=== PATIENT | male | born 1965 | race Caucasian/White ===

== ENCOUNTER → 2016-10-08 | Day surgery (SDC) | payer OTHER ==
[2016-10-06 14:18] VITALS: Ht 180.3 cm; Wt 106.8 kg
[~2016-10-08] VITALS: Ht 180.3 cm; Wt 106.8 kg
[~2016-10-08] MED LIST: ATOR10TA88 PO; CLON1TAB3 PO; DEXL60CA4 PO; FLUO20CA34 PO; LIDOCAINE HCL 2% 2 ML VIAL (20MG/ML) ONE; LISI-725 PO; PRLSR20 PO; PROPOFOL IV EMULSION 10 MG/ML 20 ML VIAL IV ONE; SODIUM CHLORIDE 0.9% 500ML 500 ML IV ONE
--- NOTE | 2016-10-08 14:23 | Endo History and Physical ---
History & Physical Date of Service: Oct 08, 2016. Chief Complaint: ACID RELUX, VOMITING, DYSPHAGIA Referring Physician: DR SANJAY FUNEZ History of Present Illness N/V, gastroparesis, gerd for EGD Past Surgical History Hx Cardiac Surgery: No Hx Internal Defibrillator: No Hx Pacemaker: No Hx Abdominal Surgery: Yes (COLON RESECTION, [facility]) Hx of Implantable Prosthesis: No Hx Post-Op Nausea and Vomiting: No Hx Cancer Surgery: No Hx Thoracic Surgery: No Hx Orthopedic: Yes (LT/RT WRIST SURGERY) Hx Urinary Tract Surgery: No Family History Colon CA Social History Smoking Status: Never Smoker Hx Substance Use: No Hx Alcohol Use: Yes (2 DRINKS/MONTH) Allergies Coded Allergies: Nitrous Oxide (Verified Allergy, Severe, RESPIRATORY PROBLEMS, 10/08/16) Carbamazepine (Verified Allergy, Unknown, RASH AND SORES ON HANDS, 10/08/16 ) Chocolate (Verified Allergy, Unknown, "ITCHING AND TONGUE FEELS FUNNY", ) ONLY IF EATEN WITH TOMATOES Citalopram (Verified Allergy, Unknown, HEART PALPITATIONS, 10/08/16) Promethazine (Verified Allergy, Unknown, BLE NUMBNESS AND SEIZURE-LIKE ACTIVITY, 10/08/16) Tomato (Verified Allergy, Unknown, "ITCHING AND TONGUE FEELS FUNNY", ) ONLY IF EATEN WITH CHOCOLATE Aspirin (Verified Adverse Reaction, Mild, BLEEDING FROM ?ORAFICE, 10/08/16) Current Medications Reported Home Medications Medications Dose Route/Sig Max Daily Dose Days Date Category Klonopin (Clonazepam) 1 Mg Tab 1 Mg PO DAILY PRN 10/06/16 Reported Dexilant (Dexlansoprazole) 60 Mg Cap 1 Cap PO QAM 10/06/16 Reported Prozac (Fluoxetine Hcl) 20 Mg Cap 20 Mg PO QPM 10/06/16 Reported Lipitor (Atorvastatin Calcium) 10 Mg Tab 10 Mg PO QPM 10/06/16 Reported Zestril (Lisinopril) 20 Mg Tab 20 Mg PO QPM 10/06/16 Reported Prilosec (Omeprazole) 20 Mg Capcr 20 Mg PO QPM 06/08/09 Reported Vital Signs Weight (Kilograms): 106.82 Height (Feet): 5 Height (Inches): 11 Date Time Temp Pulse Resp B/P (MAP) Pulse Ox O2 Delivery O2 Flow Rate FiO2 10/08/16 14:03 36.6 78 16 172/110 (130) 97 Room Air Review of Systems Respiratory: No shortness of breath Cardiovascular: No chest pain Physical Exam General Appearance: WD/WN, no apparent distress Respiratory/Chest: Respiratory effort: no dyspnea, good air movement Auscultation: breath sounds normal, no wheezing Cardiovascular: Apical Impulse: not displaced Heart Auscultation: RRR Abdomen: Bowel Sounds: normal Inspection & Palpation: soft, non-distended, no tenderness, guarding & rebound, no masses Liver: no hepatomegaly Assessment and Plan For EGD today
--- NOTE | 2016-10-08 14:41 | Discharge Instructions ---
Endoscopy Patient Instructions Date / Procedure(s) Performed Oct 08, 2016. EGD Allergy Information Coded Allergies: Nitrous Oxide (Verified Allergy, Severe, RESPIRATORY PROBLEMS, 10/08/16) Carbamazepine (Verified Allergy, Unknown, RASH AND SORES ON HANDS, 10/08/16 ) Chocolate (Verified Allergy, Unknown, "ITCHING AND TONGUE FEELS FUNNY", ) ONLY IF EATEN WITH TOMATOES Citalopram (Verified Allergy, Unknown, HEART PALPITATIONS, 10/08/16) Promethazine (Verified Allergy, Unknown, BLE NUMBNESS AND SEIZURE-LIKE ACTIVITY, 10/08/16) Tomato (Verified Allergy, Unknown, "ITCHING AND TONGUE FEELS FUNNY", ) ONLY IF EATEN WITH CHOCOLATE Aspirin (Verified Adverse Reaction, Mild, BLEEDING FROM ?ORAFICE, 10/08/16) Discharge Date / Findings Oct 08, 2016. Barretts esophagus, Hiatal hernia, mild antral gastritis Medication Instructions Continue Dexilant Provider Instructions Activity Restrictions - No exercising or heavy lifting for 24 hours. - Do not drink alcohol the day of the procedure. - Do not drive a car or operate machinery until the day after the procedure. - Do not make any important decisions or sign important papers in 24 hours after the procedure. Following Day: - Return to full activity which may include returning to work/school. Diet Start your diet with liquids and light foods (jello, soup, juice, toast). Then eat your usual diet if not nauseated. Treatment For Common After Affects For mild abdominal pain, bloating, or excessive gas: - Rest - Eat lightly - Lie on right side Follow-Up Information Follow-up with DR SANJAY FUNEZ as scheduled Contact DR Eulogio Haley for Gastroenterology followup. Anesthesia Information What You Should Know You have had a procedure that required some medicine to reduce anxiety and discomfort. This treatment is called moderate sedation. After receiving the treatment, you may be sleepy, but you will be able to breathe on your own. The effects of the treatment may last for several hours. Follow these instructions along with Activity/Diet recommendations noted above: * Do NOT do anything where dizziness or clumsiness would be dangerous. * Rest quietly at home today, then you can be up and about tomorrow. * Have a responsible person stay with you the rest of today. * You may have had an I.V. today. If so, you may take the dressing off later today. Recommendations Call your doctor if: * Trouble breathing * Continuous vomiting for more than 24 hours * Temperature above 101 degrees * Severe abdominal pain or bloating * Pain not relieved by pain medicine ordered * There is increased drainage or redness from any incision * A large amount of rectal bleeding greater than 2-3 tablespoons. (If you had a polyp/s removed or have hemorrhoids, a small amount of blood - from the rectum is to be expected.) * You have any unanswered questions or concerns. IN THE EVENT OF A SERIOUS EMERGENCY, GO TO THE NEAREST EMERGENCY ROOM Your discharge instructions were prepared by provider Tc Mercedes. Patient Instructions Signature Page Brian Villagomez Patient (or Guardian) Signature/Date: I have read and understand the instructions given to me by my caregivers. Caregiver/RN/Doctor Signature/Date: The above-named patient and/or guardian has received patient instructions on this date. + Original Patient Signature Page (only) stays with chart. Please make copy for patient.
--- NOTE | 2016-10-08 15:39 | Progress Note ---
Progress Note Date of Service Oct 08, 2016. Progress Note Pt with increased epigastric and chest burning right after procedure. Interim exam benign. At present feels at baseline with minimal epigastric and chest burning. Discussed procedure with patient and girlfriend , continue dexilant and omeprazole and f/u OV. Abdomen pos bs, soft, no guarding nor rebound, chest wall no crepitus.
[2016-10-08 15:44] VITALS: BP 143/92; PULSE 77; TEMP 36.2; O2SAT 98
--- NOTE | 2016-10-08 15:44 | Anesthesiology Progress Note ---
Anesthesia Post Op Note Date & Time Oct 08, 2016 at 15:44 Vital Signs Pain Intensity: 0 Vital Signs Past 12 Hours Date Time Temp Pulse Resp B/P (MAP) Pulse Ox O2 Delivery O2 Flow Rate FiO2 10/08/16 15:17 77 20 142/91 (108) 98 Room Air 10/08/16 15:02 80 20 134/91 (105) 97 Room Air 10/08/16 14:47 78 16 140/82 (101) 97 Room Air 10/08/16 14:03 36.6 78 16 172/110 (130) 97 Room Air Notes Mental Status: alert / awake / arousable, participated in evaluation Pt Amnestic to Procedure: Yes Nausea / Vomiting: adequately controlled Pain: adequately controlled Airway Patency, RR, SpO2: stable & adequate BP & HR: stable & adequate Hydration State: stable & adequate Anesthetic Complications: no major complications apparent
--- NOTE | 2016-10-09 00:15 | GI REPORT ---
Procedure Date: 10/08/2016 2:30 PM Procedure: Upper GI endoscopy Indications: Esophageal reflux, Gastroparesis, Vomiting Medicines: Monitored Anesthesia Care Complications: No immediate complications. Estimated Blood Loss: Estimated blood loss: none. Estimated blood loss was minimal. Procedure: Pre-Anesthesia Assessment: - The risks and benefits of the procedure and the sedation options and risks were discussed with the patient. All questions were answered and informed consent was obtained. - Patient identification and proposed procedure were verified prior to the procedure by the physician, the nurse, the senior animal trainer and the air technician. The procedure was verified in the procedure room. - Procedure and risks explained to patient which include but not limited to medication reaction, bleeding, perforation, aspiration , and missed lesions. Judicious gas insufflation was used and gas removal done on the way out. The lumen was always visualized when advancing the scope. Prep was good. Washes and suctioning used as needed to get good visualization of the mucosa. Retroflexion to look at the fundus and cardia of the stomach and GE junction was done. After obtaining informed consent, the endoscope was passed under direct vision. Throughout the procedure, the patient's blood pressure, pulse, and oxygen saturations were monitored continuously. The scope was introduced through the mouth, and advanced to the second part of duodenum. The upper GI endoscopy was accomplished without difficulty. The patient tolerated the procedure well. Findings: There were esophageal mucosal changes suspicious for short-segment Mccoy's esophagus (tongue of columnar mucosa) present in the lower third of the esophagus. The maximum longitudinal extent of these mucosal changes was 2 cm in length. Mucosa was biopsied with a cold forceps for histology. Estimated blood loss was minimal. Esophagogastric landmarks were identified: the Z-line was found at 38 cm from the incisors. A 6 cm hiatus hernia was present. Localized mildly erythematous mucosa was found in the gastric antrum. Biopsies were taken with a cold forceps for Helicobacter pylori testing. Estimated blood loss was minimal. The examined duodenum was normal. Impression: - Esophageal mucosal changes suspicious for short-segment Mccoy's esophagus. Biopsied. - Esophagogastric landmarks identified. - 6 cm hiatus hernia. - Erythematous mucosa in the antrum. Biopsied. - Normal examined duodenum. Recommendation: - Discharge patient to home (ambulatory). - Continue Dexilant. F/u with DR Eulogio Haley in the office. Tc Mercedes M.D. Tc Mercedes MD 10/08/2016 2:47:51 PM This report has been signed electronically. Note Initiated On: 10/08/2016 2:30 PM I attest to the content of the Intraoperative Record and orders documented therein, exceptions below
== END | disposition home or self-care (01) ==
LOC: C.GI 12:57
PROVIDERS: ATTEND Internal Medicine Gastroenterology
DX: K20.9 Esophagitis, unspecified (principal); K44.9 Diaphragmatic hernia without obstruction or gangrene; K21.9 Gastro-esophageal reflux disease without esophagitis; K31.84 Gastroparesis; Z80.0 Family history of malignant neoplasm of digestive organs; Z79.899 Other long term (current) drug therapy

== ENCOUNTER 2025-01-14 14:13 | Inpatient (IN) ==
[2025-01-14 15:22] LABS: Hematocrit (blood only) 41.1 % (42.0-52.0); Hemoglobin 13.8 g/dL (14.0-18.0); Immature Granulocytes # (auto) 0.02 K/uL (0.01-0.20); Immature Granulocytes % (auto) 0.3 %; Mean Corpuscular Hemoglobin 27.9 pg (25.0-34.0); Mean Corpuscular Volume 83.0 fL (80.0-100.0); Platelet Count 244 K/uL (130-400); RDW Standard Deviation 42.4 fL (36.4-46.3); Red Blood Count 4.95 M/uL (4.70-6.10); White Blood Count 7.22 K/ul (4.8-10.8)
[2025-01-14 15:42] LABS: Alanine Aminotransferase 38.0 U/L (7-52); Albumin Globulin Ratio 1.2 (0.9-2); Albumin Level 4.4 gm/dl (3.4-5.0); Alkaline Phosphatase 83.0 U/L (34-104); Anion Gap 11.0 (3-11); Bilirubin,Total 0.5 mg/dl (0.2-1.0); Blood Urea Nitrogen 19.0 mg/dl (6-23); Calcium 9.1 mg/dl (8.6-10.3); Carbon Dioxide 24.0 mmol/L (21-32); Chloride 100.0 mmol/L (98-107); Creatinine Clr Calc Pharmacy 126.0 ml/min; Globulin 3.6 gm/dl (2.5-4.0); Glucose 215.0 mg/dl (70-99(Fasting)); Lipase 15.0 U/L (11-82); Potassium 4.1 mmol/L (3.5-5.1); Sodium 135.0 mmol/L (136-145); Total Protein 8.0 gm/dl (6.0-8.3)
[2025-01-14] MEDS: OPTIRAY 320 100ml IV ONE (16:00)
[2025-01-14] MEDS: HYDROmorphone INJ 1 MG/ML SYRINGE IV STA ×2 (16:14→18:03)
[2025-01-14] MEDS: SODIUM CHLORIDE 0.9% 1,000 ML IV ONE (16:14)
[2025-01-14] MEDS: ONDANSETRON INJ 2 MG/ML 2 ML VIAL IV STA (16:14)
--- NOTE | 2025-01-14 16:27 | Emergency Department Note ---
History of Present Illness General Chief complaint: Abdominal Pain Stated complaint: ABDOMINAL PAIN S/P SURGERY Time Seen by Provider: 01/14/25 14:59 History of Present Illness Maximum Pain Intensity: 8 Patient is a 59-year-old male with history of recent right-sided hemicolectomy and ileostomy creation on 11/16/2024 at [facility] presenting with abdominal pain. He has chronic abdominal pain however last night pain became more severe. Also reports "dry heaves" and nausea. Abdominal pain is diffuse. Waxes and wanes severity. He does report his output from his ostomy is more "liquid". Denies any fevers, chills, chest pain, shortness of breath, lightheadedness, dizziness, any change in urination. Home Medications Medication Instructions Recorded Confirmed Type OMEPRAZOLE (PRILOSEC) 20 mg PO QPM ##0 06/08/09 History ATORVASTATIN (LIPITOR) 10 mg PO QPM ##0 10/06/16 History Clonazepam (Klonopin) 1 mg PO DAILY PRN Anxiety ##0 10/06/16 History DEXLANSOPRAZOLE (DEXILANT) 1 cap PO QAM ##0 10/06/16 History FLUOXETINE HCL (PROZAC) 20 mg PO QPM ##0 10/06/16 History Lisinopril (Zestril) 20 mg PO QPM ##0 10/06/16 History Allergies Allergy/AdvReac Type Severity Reaction Status Date / Time nitrous oxide Allergy Severe RESPIRATORY Verified 10/08/16 13:36 PROBLEMS carbamazepine Allergy Unknown RASH AND Verified 10/08/16 13:36 SORES ON HANDS chocolate flavor Allergy Unknown "ITCHING Verified 10/08/16 13:36 AND TONGUE FEELS FUNNY" citalopram Allergy Unknown HEART Verified 10/08/16 13:36 PALPITATIONS promethazine Allergy Unknown BLE Verified 10/08/16 13:36 NUMBNESS AND SEIZURE-LIKE ACTIVITY tomato Allergy Unknown "ITCHING Verified 10/08/16 13:36 AND TONGUE FEELS FUNNY" aspirin AdvReac Mild BLEEDING Verified 10/08/16 13:36 FROM ?ORAFICE Past Med/Surg History Problem List (Updated 01/14/25 @ 17:47 by Tc Baltazar MD) Partial small bowel obstruction (Acute) Social History Smoking Status: Never smoker Feels Safe at Home: Yes Review of Systems Review of systems negative outside of positive findings mentioned in HPI. Physical Exam Vital Signs Vital Signs - 24 hr 01/14/25 14:24 01/14/25 14:45 01/14/25 14:45 Temperature 36.8 C Temperature Source Oral Pulse Rate 99 H 92 H 94 H Pulse Rate [Apical] Pulse Rate from SpO2 Sensor Respiratory Rate 20 17 Respiratory Effort / Characteristics Non-Labored Respiratory Depth Respiratory Pattern Regular Blood Pressure 148/95 H Blood Pressure [Right Arm] Blood Pressure Mean 112 Blood Pressure Mean [Right Arm] Blood Pressure Position Sitting Blood Pressure Position [Right Arm] Pulse Oximetry 96 Oxygen Delivery Method Room Air Sepsis Recent Fever Within 48 Hours No Sepsis New/Unexplained Change in Mental Status No Sepsis Action Taken by Nursing No Action Required 01/14/25 15:00 01/14/25 15:12 01/14/25 15:13 Temperature Temperature Source Pulse Rate 89 85 Pulse Rate [Apical] Pulse Rate from SpO2 Sensor Respiratory Rate 15 15 Respiratory Effort / Characteristics Respiratory Depth Respiratory Pattern Blood Pressure 132/87 Blood Pressure [Right Arm] Blood Pressure Mean 103 Blood Pressure Mean [Right Arm] Blood Pressure Position Blood Pressure Position [Right Arm] Pulse Oximetry Oxygen Delivery Method Sepsis Recent Fever Within 48 Hours Sepsis New/Unexplained Change in Mental Status Sepsis Action Taken by Nursing 01/14/25 15:14 01/14/25 15:14 01/14/25 15:15 Temperature Temperature Source Pulse Rate Pulse Rate [Apical] 90 Pulse Rate from SpO2 Sensor Respiratory Rate 20 Respiratory Effort / Characteristics Non-Labored Spontaneous Respiratory Depth Normal Respiratory Pattern Regular Blood Pressure 134/91 Blood Pressure [Right Arm] 134/91 Blood Pressure Mean 102 Blood Pressure Mean [Right Arm] 105 Blood Pressure Position Blood Pressure Position [Right Arm] Semi-fowlers Pulse Oximetry 96 95 Oxygen Delivery Method Room Air Room Air Sepsis Recent Fever Within 48 Hours Sepsis New/Unexplained Change in Mental Status Sepsis Action Taken by Nursing 01/14/25 15:15 01/14/25 15:30 01/14/25 15:42 Temperature Temperature Source Pulse Rate 89 92 H 92 H Pulse Rate [Apical] Pulse Rate from SpO2 Sensor 89 92 H 92 H Respiratory Rate 19 14 22 Respiratory Effort / Characteristics Respiratory Depth Respiratory Pattern Blood Pressure Blood Pressure [Right Arm] Blood Pressure Mean Blood Pressure Mean [Right Arm] Blood Pressure Position Blood Pressure Position [Right Arm] Pulse Oximetry 94 95 95 Oxygen Delivery Method Sepsis Recent Fever Within 48 Hours Sepsis New/Unexplained Change in Mental Status Sepsis Action Taken by Nursing 01/14/25 16:14 01/14/25 16:15 01/14/25 16:30 Temperature Temperature Source Pulse Rate 91 H 83 Pulse Rate [Apical] Pulse Rate from SpO2 Sensor 95 H 82 Respiratory Rate 19 15 Respiratory Effort / Characteristics Respiratory Depth Respiratory Pattern Blood Pressure 148/98 H Blood Pressure [Right Arm] Blood Pressure Mean 129 Blood Pressure Mean [Right Arm] Blood Pressure Position Blood Pressure Position [Right Arm] Pulse Oximetry 96 93 Oxygen Delivery Method Sepsis Recent Fever Within 48 Hours Sepsis New/Unexplained Change in Mental Status Sepsis Action Taken by Nursing 01/14/25 16:30 01/14/25 16:30 01/14/25 16:45 Temperature Temperature Source Pulse Rate 83 Pulse Rate [Apical] Pulse Rate from SpO2 Sensor 84 Respiratory Rate 14 Respiratory Effort / Characteristics Respiratory Depth Respiratory Pattern Blood Pressure 127/88 127/88 Blood Pressure [Right Arm] Blood Pressure Mean 106 106 Blood Pressure Mean [Right Arm] Blood Pressure Position Blood Pressure Position [Right Arm] Pulse Oximetry 93 Oxygen Delivery Method Sepsis Recent Fever Within 48 Hours Sepsis New/Unexplained Change in Mental Status Sepsis Action Taken by Nursing 01/14/25 16:45 01/14/25 16:45 01/14/25 17:00 Temperature Temperature Source Pulse Rate 75 Pulse Rate [Apical] Pulse Rate from SpO2 Sensor 74 Respiratory Rate 16 Respiratory Effort / Characteristics Respiratory Depth Respiratory Pattern Blood Pressure 127/89 127/89 Blood Pressure [Right Arm] Blood Pressure Mean 100 100 Blood Pressure Mean [Right Arm] Blood Pressure Position Blood Pressure Position [Right Arm] Pulse Oximetry 94 Oxygen Delivery Method Sepsis Recent Fever Within 48 Hours Sepsis New/Unexplained Change in Mental Status Sepsis Action Taken by Nursing 01/14/25 17:00 01/14/25 17:15 01/14/25 17:15 Temperature Temperature Source Pulse Rate Pulse Rate [Apical] Pulse Rate from SpO2 Sensor Respiratory Rate Respiratory Effort / Characteristics Respiratory Depth Respiratory Pattern Blood Pressure 122/81 139/91 139/91 Blood Pressure [Right Arm] Blood Pressure Mean 97 100 100 Blood Pressure Mean [Right Arm] Blood Pressure Position Blood Pressure Position [Right Arm] Pulse Oximetry Oxygen Delivery Method Sepsis Recent Fever Within 48 Hours Sepsis New/Unexplained Change in Mental Status Sepsis Action Taken by Nursing 01/14/25 17:15 01/14/25 17:30 01/14/25 17:30 Temperature Temperature Source Pulse Rate 77 75 Pulse Rate [Apical] Pulse Rate from SpO2 Sensor 71 76 Respiratory Rate 16 17 Respiratory Effort / Characteristics Respiratory Depth Respiratory Pattern Blood Pressure 134/87 Blood Pressure [Right Arm] Blood Pressure Mean 111 Blood Pressure Mean [Right Arm] Blood Pressure Position Blood Pressure Position [Right Arm] Pulse Oximetry 96 97 Oxygen Delivery Method Sepsis Recent Fever Within 48 Hours Sepsis New/Unexplained Change in Mental Status Sepsis Action Taken by Nursing 01/14/25 17:30 01/14/25 17:30 Temperature Temperature Source Pulse Rate Pulse Rate [Apical] Pulse Rate from SpO2 Sensor Respiratory Rate Respiratory Effort / Characteristics Respiratory Depth Respiratory Pattern Blood Pressure 134/87 134/87 Blood Pressure [Right Arm] Blood Pressure Mean 111 111 Blood Pressure Mean [Right Arm] Blood Pressure Position Blood Pressure Position [Right Arm] Pulse Oximetry Oxygen Delivery Method Sepsis Recent Fever Within 48 Hours Sepsis New/Unexplained Change in Mental Status Sepsis Action Taken by Nursing See below Constitutional WD/WN, vitals as above Respiratory normal respiratory effort, lungs clear to auscultation Cardiovascular RRR, no murmur, no edema Gastrointestinal (Abdomen) Inspection/Auscultation: + abdomen distended, normal bowel sounds and + surgical scar Percussion/Palpation: + abdomen tender (diffuse to light palpation ), + guarding and abdomen soft Ostomy with normal color and patency Course Administered Medications Discontinued Medications Hydromorphone HCl (Hydromorphone Inj 1 Mg/Ml Syringe) 1 mg IV NOW STA Stop: 01/14/25 15:53 Last Admin: 01/14/25 16:14 Dose: 1 mg Documented By: ETHAN Sodium Chloride (Nss) 1,000 mls @ 999 mls/hr IV .Q1H1M ONE Stop: 01/14/25 16:52 Last Infusion: 01/14/25 17:33 Dose: Infused Documented By: Admin: 01/14/25 16:14 Dose: 999 mls/hr Documented By: ETHAN Ioversol (Optiray 320 100ml) 90 ml IV ONCE ONE Stop: 01/14/25 16:01 Last Admin: 01/14/25 16:00 Dose: 90 ml Documented By: OLGA Ondansetron HCl (Ondansetron Inj 2 Mg/Ml 2 Ml Vial) 4 mg IV NOW STA Stop: 01/14/25 15:53 Last Admin: 01/14/25 16:14 Dose: 4 mg Documented By: ETHAN Medical Decision Making Differential Diagnosis DDx includes but not limited to: SBO, partial SBO, ischemic bowel, volvulus, gastroenteritis, pancreatitis Medical Records Attestation: I reviewed the patient's medical records. Home Medications Current Medication List: was personally reviewed by me Laboratory Data Attestation: I reviewed the patient's lab results. 01/14/25 15:10 01/14/25 15:10 Lab Results 01/14/25 01/14/25 01/14/25 Range/Units 15:10 15:41 15:48 WBC 7.22 (4.8-10.8) K/ul RBC 4.95 (4.70-6.10) M/uL Hgb 13.8 L (14.0-18.0) g/dL Hct 41.1 L (42.0-52.0) % MCV 83.0 (80.0-100.0) fL MCH 27.9 (25.0-34.0) pg MCHC 33.6 (32.0-36.0) g/dL RDW Std Deviation 42.4 (36.4-46.3) fL RDW Coeff of Re 14.0 (11.5-14.5) % Plt Count 244 (130-400) K/uL MPV 10.1 (9.4-12.4) fL Immature Gran % (Auto) 0.3 % Neut % (Auto) 79.0 % Lymph % (Auto) 12.2 % Boyle % (Auto) 7.5 % Eos % (Auto) 0.4 % Baso % (Auto) 0.6 % Neut # (Auto) 5.71 (1.40-6.50) K/uL Lymph # (Auto) 0.88 L (1.20-3.40) K/uL Boyle # (Auto) 0.54 (0.11-0.59) K/uL Eos # (Auto) 0.03 (0.00-0.50) K/uL Baso # (Auto) 0.04 (0.00-0.20) K/uL Immature Gran # (Auto) 0.02 (0.01-0.20) K/uL PT Cancelled INR Cancelled Sodium 135 L (136-145) mmol/L Potassium 4.1 (3.5-5.1) mmol/L Chloride 100 (98-107) mmol/L Carbon Dioxide 24 (21-32) mmol/L Anion Gap 11 (3-11) BUN 19 (6-23) mg/dl Creatinine 0.82 (0.6-1.4) mg/dl Est Cr Clr Drug Dosing 126.0 ml/min eGFR 101.82 BUN/Creatinine Ratio 23.2 H (10-20) Glucose 215 H (70-99(Fasting)) mg/dl Lactate 2.5 H* (0.4-2.0) mmol/L Calcium 9.1 (8.6-10.3) mg/dl Total Bilirubin 0.5 (0.2-1.0) mg/dl AST 35 (13-39) U/L ALT 38 (7-52) U/L Alkaline Phosphatase 83 (34-104) U/L Troponin I High Sens 3.2 (0-20) pg/ml Total Protein 8.0 (6.0-8.3) gm/dl Albumin 4.4 (3.4-5.0) gm/dl Globulin 3.6 (2.5-4.0) gm/dl Albumin/Globulin Ratio 1.2 (0.9-2) Lipase 15 (11-82) U/L Procalcitonin < 0.02 (0-0.5) ng/ml SARS-CoV-2, RNA, NAAT NEGATIVE (NEGATIVE) 01/14/25 Range/Units 16:43 WBC (4.8-10.8) K/ul RBC (4.70-6.10) M/uL Hgb (14.0-18.0) g/dL Hct (42.0-52.0) % MCV (80.0-100.0) fL MCH (25.0-34.0) pg MCHC (32.0-36.0) g/dL RDW Std Deviation (36.4-46.3) fL RDW Coeff of Re (11.5-14.5) % Plt Count (130-400) K/uL MPV (9.4-12.4) fL Immature Gran % (Auto) % Neut % (Auto) % Lymph % (Auto) % Boyle % (Auto) % Eos % (Auto) % Baso % (Auto) % Neut # (Auto) (1.40-6.50) K/uL Lymph # (Auto) (1.20-3.40) K/uL Boyle # (Auto) (0.11-0.59) K/uL Eos # (Auto) (0.00-0.50) K/uL Baso # (Auto) (0.00-0.20) K/uL Immature Gran # (Auto) (0.01-0.20) K/uL PT 10.9 INR 1.0 Sodium (136-145) mmol/L Potassium (3.5-5.1) mmol/L Chloride (98-107) mmol/L Carbon Dioxide (21-32) mmol/L Anion Gap (3-11) BUN (6-23) mg/dl Creatinine (0.6-1.4) mg/dl Est Cr Clr Drug Dosing ml/min eGFR BUN/Creatinine Ratio (10-20) Glucose (70-99(Fasting)) mg/dl Lactate (0.4-2.0) mmol/L Calcium (8.6-10.3) mg/dl Total Bilirubin (0.2-1.0) mg/dl AST (13-39) U/L ALT (7-52) U/L Alkaline Phosphatase (34-104) U/L Troponin I High Sens (0-20) pg/ml Total Protein (6.0-8.3) gm/dl Albumin (3.4-5.0) gm/dl Globulin (2.5-4.0) gm/dl Albumin/Globulin Ratio (0.9-2) Lipase (11-82) U/L Procalcitonin (0-0.5) ng/ml SARS-CoV-2, RNA, NAAT (NEGATIVE) Imaging Data Radiologist's Impression: Abdomen/Pelvis CT 01/14/25 15:23 INDICATION: Abdominal pain COMPARISON: 05/03/2015 TECHNIQUE: Contiguous axial CT images were obtained through the abdomen and pelvis. Dose reduction according to patient size and/or automated exposure control techniques have been utilized for this exam. FINDINGS: CT ABDOMEN: LUNG BASES:Small hiatal hernia. Lung bases are clear. LIVER: No worrisome hepatic lesions. Hepatic steatosis. Mild intrahepatic biliary ductal dilatation SPLEEN: Unremarkable. GALLBLADDER: Cholecystectomy. KIDNEYS: No hydronephrosis or nephrolithiasis. No solid renal lesions. PANCREAS: The body and tail of the pancreas are not visualized, possibly surgically absent. ADRENAL GLANDS: Unremarkable. PROXIMAL BOWEL: Mildly dilated loops of small bowel in the left upper quadrant suggestive of partial obstruction or ileus. RETROPERITONEUM: No AAA. No significant lymphadenopathy. OTHER: Right lower quadrant ostomy. CT PELVIS: URINARY BLADDER: Unremarkable. PELVIC ORGANS: Unremarkable. DISTAL BOWEL: There is some mild retained stool in the colon. There is some oral contrast in the visualized portions of the colon. OTHER: No significant lymphadenopathy. There is no free pelvic fluid. IMPRESSION: There are some mildly dilated fluid-filled loops of proximal small bowel in the left upper quadrant, suggestive of partial small bowel obstruction or ileus. Electronically signed by Kaelyn Mcbride 01-14-2025 5:12 PM [facility] Narrative Patient is a 59-year-old male with history as seen above who presents for worsening acute on chronic abdominal pain as well as nausea and vomiting. Hemodynamically stable. Nonperitoneal abdominal exam. He is having some output from his ostomy without signs of ischemia of the ostomy site itself. Lab work was obtained. No leukocytosis noted. Mild lactate elevation at 2.5. IV fluids and antiemetics as well as IV pain medication was ordered. Mildly dilated fluid-filled small bowel noted on CT. This is suggestive of partial small bowel obstruction. I spoke with Dr. Alexx Chandra with general surgery. She recommends hospital admission and NG tube placement for medical management of partial small bowel. Patient is stable for admission to medical service. Impression & Plan Partial small bowel obstruction Discharge Plan Visit Data Chief Complaint: Abdominal Pain Stated Complaint: ABDOMINAL PAIN S/P SURGERY ED Provider: Tc Baltazar Discharge Problem: Partial small bowel obstruction Patient Disposition: Admitted As Inpatient Condition: Good Forms Stand Alone Forms: My [facility] [employer] Prescriptions Prescriptions: No Action OMEPRAZOLE (PRILOSEC) 20 MG CONTR REL CAP 20 mg PO QPM Qty: 0 ATORVASTATIN (LIPITOR) 10 MG tablet 10 mg PO QPM Qty: 0 Clonazepam (Klonopin) 1 MG tablet 1 mg PO DAILY PRN (Reason: Anxiety) Qty: 0 DEXLANSOPRAZOLE (DEXILANT) 60 MG capsule 1 cap PO QAM Qty: 0 FLUOXETINE HCL (PROZAC) 20 MG capsule 20 mg PO QPM Qty: 0 Lisinopril (Zestril) 20 MG tablet 20 mg PO QPM Qty: 0 Referrals Referrals: Ike Hare PA-C [Primary Care Provider] -
--- NOTE | 2025-01-14 17:12 | CT Scan Report ---
INDICATION: Abdominal pain COMPARISON: 05/03/2015 TECHNIQUE: Contiguous axial CT images were obtained through the abdomen and pelvis. Dose reduction according to patient size and/or automated exposure control techniques have been utilized for this exam. FINDINGS: CT ABDOMEN: LUNG BASES:Small hiatal hernia. Lung bases are clear. LIVER: No worrisome hepatic lesions. Hepatic steatosis. Mild intrahepatic biliary ductal dilatation SPLEEN: Unremarkable. GALLBLADDER: Cholecystectomy. KIDNEYS: No hydronephrosis or nephrolithiasis. No solid renal lesions. PANCREAS: The body and tail of the pancreas are not visualized, possibly surgically absent. ADRENAL GLANDS: Unremarkable. PROXIMAL BOWEL: Mildly dilated loops of small bowel in the left upper quadrant suggestive of partial obstruction or ileus. RETROPERITONEUM: No AAA. No significant lymphadenopathy. OTHER: Right lower quadrant ostomy. CT PELVIS: URINARY BLADDER: Unremarkable. PELVIC ORGANS: Unremarkable. DISTAL BOWEL: There is some mild retained stool in the colon. There is some oral contrast in the visualized portions of the colon. OTHER: No significant lymphadenopathy. There is no free pelvic fluid. IMPRESSION: There are some mildly dilated fluid-filled loops of proximal small bowel in the left upper quadrant, suggestive of partial small bowel obstruction or ileus. Electronically signed by Kaelyn Mcbride 01-14-2025 5:12 PM
[2025-01-14 17:29] LABS: INR 1.0 (0.9-1.1); Prothrombin Time 10.9 Seconds (9.0-12.0)
--- NOTE | 2025-01-14 18:27 | History & Physical Report ---
Date of Service January 14, 2025 Assessment & Plan (1) Partial small bowel obstruction: (2) C. difficile colitis: (3) Diabetes type 1: (4) Colostomy in place: (5) HTN (hypertension): (6) Opioid dependence: Plan 59 y/o who had R hemicolectomy and colostomy on 11/16 who presents with acute abdominal pain. Found to have partial SBO on CT abdomen/pelvis # Partial SBO vs ileus. Might have pSBO on basis of adhesions from recent colectomy. He recently finished oral vancomycin for C. diff and seems to be having diarrhea - ileus related to C. diff is another possibility -ng tube, IV fluids, IV hydromorphone and IV APAP PRN pain, IV ondansetron or benadryl PRN N/V. Had reaction to promethazine in past (leg numbness and seizure-like) could have been akathesia so trying to avoid compazine, reglan -recheck 2h lactate for mild elevation -metronidazole 500 mg IV q8h and check C. diff toxin. If recurrence, start fidaxomycin once able to tolerate po -AM CMP mag, CBC -ED consulted general surgery and spoke with Dr. Coffey-Prateek - rec'd conservative care and unlikely to require transfer right now # HTN, HLD -hold antihypertensives and statin until taking po # GERD - IV pepcid to replace dexlansoprazole. Try to transition to pepcid instead of PPI for GERD because of risk of recurrent C. diff # Anxiety, mood disorder -usually takes clonazepam prn - replace with low dose IV lorazepam PRN -fluoxetine held until taking po # DM type 1 - - will try continuing novolin pump and CGM - currently ordered D5 in IVF which may need adjustment - AM A1c # Recent bacteremia - completed a month of home IV antibiotics recently - get [facility] records # postprocedural hypothyroidism - Hx thyroidectomy - recently led to not digesting pills, possibly to his colon problem - get [facility] records - per pharm database usual dose is 250 mcg daily - start IV if prolonged NPO # chronic pain, opioid dependence - per PDMP uses fentanyl patch 75 mcg - continue - also oxycodone 20 mg qid prn - current diarrhea could be component of opioid withdrawal - will need opioid tolerant dosing # DVT ppx - enoxaparin History of Present Illness Chief Complaint: Abdominal pain Primary Care Provider: Ike Hare PA-C 59 y/o with DM type 1 and right hemicolectomy with colostomy 11/16 at [facility] came in with nausea/vomiting, abdominal pain and distention. He says the hemicolectomy was done for a dilated and abscessed right colon. He had a bacteremia and completed IV antibiotics at home recently. He also was treated for C. diff and completed oral vancomycin recently. He was in his usual state of health until yesterday, developed some chills/sweats, recurrent nausea/vomiting, severe abdominal pain. Yesterday he had a good amount of oatmeal consistency stool from his ostomy. Today he has had a lot of liquid stool and gas. He would put it in the category of diarrhea. No blood in stool. Pain improved to moderate after IV hydromorphone but it did wear off in about 2h. Med list not up to date yet, I reviewed in pharm database and PDMP Remarkable for amlodipine, coreg, lisinopril, statin, levothyroxine, PPI, clonazepam, fentanyl patch 75 mcg, oxycodone 20 mg po qid prn, insulin pump PMH: DM type 1 Hypothyroidism HTN HLD PSH: R hemicolectomy, R colostomy 11/16 Thyroid resection Allergies Allergy/AdvReac Type Severity Reaction Status Date / Time nitrous oxide Allergy Severe RESPIRATORY Verified 10/08/16 13:36 PROBLEMS carbamazepine Allergy Unknown RASH AND Verified 10/08/16 13:36 SORES ON HANDS chocolate flavor Allergy Unknown "ITCHING Verified 10/08/16 13:36 AND TONGUE FEELS FUNNY" citalopram Allergy Unknown HEART Verified 10/08/16 13:36 PALPITATIONS promethazine Allergy Unknown BLE Verified 10/08/16 13:36 NUMBNESS AND SEIZURE-LIKE ACTIVITY tomato Allergy Unknown "ITCHING Verified 10/08/16 13:36 AND TONGUE FEELS FUNNY" aspirin AdvReac Mild BLEEDING Verified 10/08/16 13:36 FROM ?ORAF[facility] Home Medications Medication Instructions Recorded Confirmed Type OMEPRAZOLE (PRILOSEC) 20 mg PO QPM ##0 06/08/09 History ATORVASTATIN (LIPITOR) 10 mg PO QPM ##0 10/06/16 History Clonazepam (Klonopin) 1 mg PO DAILY PRN Anxiety ##0 10/06/16 History DEXLANSOPRAZOLE (DEXILANT) 1 cap PO QAM ##0 10/06/16 History FLUOXETINE HCL (PROZAC) 20 mg PO QPM ##0 10/06/16 History Lisinopril (Zestril) 20 mg PO QPM ##0 10/06/16 History Past Med/Surg History Problem List (Updated 01/14/25 @ 19:27 by Macie Garcia MD) Opioid dependence HTN (hypertension) Colostomy in place Diabetes type 1 C. difficile colitis Partial small bowel obstruction (Acute) Social History Smoking Status: Never smoker Feels Safe at Home: Yes Review of Systems Review of Systems: All systems reviewed & are unremarkable except as noted in HPI & below Physical Exam Physical Exam: Last 24h vitals reviewed GEN: no acute distress, sitting in bed HEENT: pupils equal, sclerae anicteric, moist MM. Postsurgical changes to right side of face and neck, well healed. L eye EOMI. R eye dysconjugate RESP: normal WOB, CTAB CV: reg no mrg ABD: distended, generalized tenderness, no rrg, +BT, RLQ ostomy pink with active liquid stool and gas output, surgical incisions healing well : no love SKIN: warm and dry, no generalized rashes NEURO: AOx person, place, and situation. speech normal, moves 4 ext spontaneously and equally Results & Data Results & Data Vital Signs (Past 12 Hours) Vital Signs Temp Pulse Pulse Resp BP BP Pulse Ox 01/14/25 18:00 78 17 138/81 95 01/14/25 17:30 134/87 01/14/25 17:30 134/87 01/14/25 17:30 134/87 01/14/25 17:30 75 17 97 01/14/25 17:15 77 16 96 01/14/25 17:15 139/91 01/14/25 17:15 139/91 01/14/25 17:00 122/81 01/14/25 17:00 75 16 94 01/14/25 16:45 127/89 01/14/25 16:45 127/89 01/14/25 16:45 83 14 93 01/14/25 16:30 127/88 01/14/25 16:30 127/88 01/14/25 16:30 83 15 93 01/14/25 16:15 91 H 19 96 01/14/25 16:14 148/98 H 01/14/25 15:42 92 H 22 95 01/14/25 15:30 92 H 14 95 01/14/25 15:15 89 19 94 01/14/25 15:15 134/91 01/14/25 15:14 95 01/14/25 15:14 90 20 134/91 96 01/14/25 15:13 132/87 01/14/25 15:12 85 15 01/14/25 15:00 89 15 01/14/25 14:45 94 H 17 01/14/25 14:45 92 H 01/14/25 14:24 36.8 C 99 H 20 148/95 H 96 O2 Del Method 01/14/25 18:00 Room Air 01/14/25 17:30 01/14/25 17:30 01/14/25 17:30 01/14/25 17:30 01/14/25 17:15 01/14/25 17:15 01/14/25 17:15 01/14/25 17:00 01/14/25 17:00 01/14/25 16:45 01/14/25 16:45 01/14/25 16:45 01/14/25 16:30 01/14/25 16:30 01/14/25 16:30 01/14/25 16:15 01/14/25 16:14 01/14/25 15:42 01/14/25 15:30 01/14/25 15:15 01/14/25 15:15 01/14/25 15:14 Room Air 01/14/25 15:14 Room Air 01/14/25 15:13 01/14/25 15:12 01/14/25 15:00 01/14/25 14:45 01/14/25 14:45 01/14/25 14:24 Room Air Laboratory Results W 7 Hg 13.8 Plt normal INR 1 Na 135 AG 11 BUN/Cr 19/0.82 lactate 2.5 LFT nl Trop 3 lipase 15 Procal neg Covid neg Blood cultures pending CT - mildly dilated loops small bowel in LUQ R hemicolectomy and colostomy Some retained stool in rectum Personally reviewed CT films and agree PG Care Time/CCT Total # of Minutes Spent Total Time Spent with Patient: Total time spent is greater than 50% in coordination of care (as documented) at patient's floor/unit and/or counseling patient: Coding Level of Care Code 83456 INT INP/OBS CARE 375MIN Diagnoses Partial small bowel obstruction K56.600 C. difficile colitis A04.72 Diabetes type [address] Z93.3 HTN (hypertension) I10 Opioid dependence F11.20
[2025-01-14] MEDS ORDERED: LORazepam Inj 0.5 MG in SYRINGE 0.25 ML IV PRN (18:46)
[2025-01-14] MEDS: D5W AND 1/2NSS + 20MEQ KCL 20 MEQ/1,000 ML BAG IV SCH (19:01)
[2025-01-14] MEDS ORDERED: INSULIN ASPART 100 UNITS/ML VIAL SC PRN (19:06)
--- NOTE | 2025-01-14 19:17 | XRay Report ---
INDICATION: Abdominal pain TECHNIQUE: Portable supine upright view radiograph of the abdomen was obtained. COMPARISON: CT abdomen pelvis from the same day. FINDINGS: Enteric tube with the tip and the sidehole projecting over the gastric body. Mildly air distended stomach and loops of small bowel are again seen. Evaluation for free air is limited due to supine technique. Organ silhouettes are normal in shape and contour. There is no gross mass effect. Cholecystectomy clips. IMPRESSION: Well-positioned enteric tube. Electronically signed by Guillermo Dobbins 01-14-2025 7:16 PM
[2025-01-14] MEDS ORDERED: diphenhydrAMINE 50 MG/ML VIAL IV PRN (19:20)
[2025-01-14] MEDS ORDERED: DEXTROSE 50% 50 ML SYRINGE IV PRN ×2 (19:30→21:21)
[2025-01-14] MEDS ORDERED: GLUCOSE 10 TAB/TUBE PO PRN ×2 (19:30→21:21)
[2025-01-14] MEDS ORDERED: GLUCAGON FOR INJ 1 MG VIAL SQ PRN ×2 (19:30→21:21)
[2025-01-14] MEDS ORDERED: GLUCOSE 40% GEL 15 GM TUBE PO PRN ×2 (19:30→21:21)
[2025-01-14] MEDS ORDERED: CARBOHYDRATES FOR HYPOGLYCEMIA PO PRN ×2 (19:30→21:21)
[2025-01-14] MEDS: HYDROmorphone INJ 0.5 MG/0.5 ML SYR IV PRN ×2 (19:47→22:31)
[2025-01-14 20:46] LABS: Cdiff Toxin B Gene (2yr or >) Negative Cdiff Gene (Neg)
[2025-01-14] MEDS ORDERED: ACETAMINOPHEN 1,000 MG/100 ML VIAL IV PRN (21:21)
[2025-01-14] MEDS ORDERED: PHARMACY GLYCEMIC MGMT CONSULT PRN (21:21)
[2025-01-14] MEDS: ENOXAPARIN INJ 40 MG/0.4 ML SYR SQ SCH (22:59)
[2025-01-14] MEDS: FAMOTIDINE 20MG IV PUSH 20 MG/5 ML SYR IV SCH (22:59)
[2025-01-14] MEDS: metroNIDAZOLE 500 MG/100 ML BAG IV SCH (23:00)
[2025-01-15] MEDS ORDERED: DEXTROSE 50% 50 ML SYRINGE IV PRN (01:05)
[2025-01-15] MEDS ORDERED: GLUCAGON FOR INJ 1 MG VIAL SQ PRN (01:05)
[2025-01-15] MEDS ORDERED: CARBOHYDRATES FOR HYPOGLYCEMIA PO PRN (01:05)
[2025-01-15] MEDS ORDERED: GLUCOSE 10 TAB/TUBE PO PRN (01:05)
[2025-01-15] MEDS ORDERED: GLUCOSE 40% GEL 15 GM TUBE PO PRN (01:05)
[2025-01-15] MEDS: Continuous Glucose Monitor SCH (01:40)
[2025-01-15] MEDS: INSULIN, Rapid-Acting PUMP SC SCH (01:40)
[2025-01-15] MEDS: INSULIN ASPART PER UNIT CHARGE SC SCH ×2 (01:56→07:42)
[2025-01-15] MEDS: LANTUS PER UNIT CHARGE SC ONE ×3 (03:54→13:13)
[2025-01-15 07:00] LABS: Hematocrit (blood only) 40.5 % (42.0-52.0); Hemoglobin 13.2 g/dL (14.0-18.0); Mean Corpuscular Hemoglobin 27.4 pg (25.0-34.0); Mean Corpuscular Volume 84.0 fL (80.0-100.0); Platelet Count 211 K/uL (130-400); RDW Standard Deviation 43.9 fL (36.4-46.3); Red Blood Count 4.82 M/uL (4.70-6.10); White Blood Count 7.08 K/ul (4.8-10.8)
[2025-01-15 07:16] LABS: Appearance Urine Clear (Clear); Bacteria Urine Automated None Seen (None Seen); Cast Urine Automated 0-2 /lpf (0-2); Epithelial Cell Urine Auto 0-2 /hpf (0-2); Glucose Urine UA 1+ (Negative); RBC Urine Automated 0-2 /hpf (0-2); WBC Urine Automated 0-5 /hpf (0-5)
[2025-01-15] MEDS ORDERED: INSULIN ASPART PER UNIT CHARGE SC SCH (07:30)
[2025-01-15 07:33] LABS: Alanine Aminotransferase 32.0 U/L (7-52); Albumin Globulin Ratio 1.5 (0.9-2); Albumin Level 4.4 gm/dl (3.4-5.0); Alkaline Phosphatase 75.0 U/L (34-104); Anion Gap 9.0 (3-11); Bilirubin,Total 0.5 mg/dl (0.2-1.0); Blood Urea Nitrogen 17.0 mg/dl (6-23); Calcium 8.5 mg/dl (8.6-10.3); Carbon Dioxide 24.0 mmol/L (21-32); Chloride 102.0 mmol/L (98-107); Creatinine Clr Calc Pharmacy 123.9 ml/min; Globulin 3.0 gm/dl (2.5-4.0); Glucose 288.0 mg/dl (70-99(Fasting)); Magnesium 1.8 mg/dl (1.7-2.4); Potassium 4.3 mmol/L (3.5-5.1); Sodium 135.0 mmol/L (136-145); Total Protein 7.4 gm/dl (6.0-8.3)
[2025-01-15 07:44] LABS: Hemoglobin A1C 8.6 % (4.5-5.6)
[2025-01-15] MEDS: ONDANSETRON INJ 2 MG/ML 2 ML VIAL IV PRN (07:48)
--- NOTE | 2025-01-15 08:28 | XRay Report ---
EXAM: Radiograph of the Abdomen 1 View INDICATION: Evaluate for obstruction versus ileus. TECHNIQUE: Frontal supine view of the abdomen/pelvis. COMPARISON: CT abdomen yesterday. FINDINGS: Limitations: None. Gastrointestinal tract: Decreased bowel gas with a small amount noted in loops in the left lower abdomen. Organs: Visualized organ shadows appear grossly normal. Bones/joints: No fracture, erosion or dislocation. Soft tissues: No abnormality noted. No radiopaque foreign body noted. Tubes, lines and devices: Nasogastric tube tip in the gastric fundus. Gastric distention resolved. IMPRESSION: 1. Significant decrease in intestinal aeration following nasogastric tube placement and gastric decompression. This pattern can be seen in obstruction and ileus. 2. Lines and tubes as above. ACT 112: N/A Electronically signed by Jovanna Price 01-15-2025 08:27 AM
[2025-01-15] MEDS ORDERED: LANTUS PER UNIT CHARGE SQ SCH (09:00)
--- NOTE | 2025-01-15 12:30 | Hospitalist Progress Note ---
Date of Service January 15, 2025 Assessment & Plan (1) Partial small bowel obstruction: (2) C. difficile colitis: (3) Diabetes type 1: (4) Colostomy in place: (5) HTN (hypertension): (6) Opioid dependence: Plan 59 y/o who had R hemicolectomy and colostomy on 11/16, subsequently completed treatment for C. diff and bloodstream infection, who presents with acute abdominal pain. Found to have partial SBO vs ileus on CT abdomen/pelvis # Partial SBO vs ileus. Resolving with resolution of distention, large amount of liquid stool and gas output. Remains painful and TTP in RLQ with ongoing nausea - C. diff toxin was negative, stopped metronidazole IV - could be gastroenteritis - check stool biofire - there may be / have been component of opioid withdrawal, however has probably had adequate amount of IV hydromorphone at this point - continue NG tube to LIS for now - continue IVF with D5 1/2 NS + 20K - consult general surgery # DM type 1 - A1c 8.6% [place] so treating with glargine and SQ aspart. Discussed with pharmacist for assistance with glycemic management. Currently on D5 at 125 with BGs around 200 - a little too high but acceptable, no hypoglycemias. # HTN, HLD -hold antihypertensives and statin until taking po # GERD - IV pepcid to replace dexlansoprazole. Try to transition to pepcid instead of PPI for GERD because of risk of recurrent C. diff # Anxiety, mood disorder -usually takes clonazepam prn - replace with low dose IV lorazepam PRN -fluoxetine held until taking po # Recent bacteremia - completed a month of home IV antibiotics recently - follow blood cultures - get [facility] records # postprocedural hypothyroidism - Hx thyroidectomy - recently led to not digesting pills, possibly to his colon problem - get [employer] [facility] [facility] records - per pharm database usual dose is 250 mcg daily - start IV if prolonged NPO # chronic pain, opioid dependence - per PDMP uses fentanyl patch 75 mcg - continue - also oxycodone 20 mg qid prn - currently on IV hydromorphone - assess use so far and see if dose increase needed - current diarrhea could be component of opioid withdrawal - will need opioid tolerant dosing # DVT ppx - enoxaparin Admission and Anticipated Discharge Date Admission Date: January 14, 2025 Subjective No longer distended but remains nauseated with significant amount of RLQ pain Having liquid watery diarrhea - on 4th ostomy bag change already today Had myalgias yesterday. Denies any sick contacts - some friends ill but hasn't visited with them Physical Exam 2 Physical Exam: Last 24h vitals reviewed GEN: sitting EOB, does appear somewhat uncomfortable HEENT: pupils equal, sclerae anicteric, moist MM. Postsurgical changes to right side of face and neck, well healed. L eye EOMI. R eye dysconjugate RESP: normal WOB, CTAB CV: reg no mrg ABD: no longer distended, TTP in RLQ. hyperalgesic superior to colostomy, somewhat firm lower down. Pressing on L side of abdomen does cause some RLQ pain. NABS. large amount of liquid watery brown stool and gas in bag : no love SKIN: warm and dry, no generalized rashes NEURO: AOx person, place, and situation. speech normal, moves 4 ext spontaneously and equally Results & Data Results & Data Vital Signs (Past 12 Hours) Vital Signs Temp Pulse Resp BP Pulse Ox O2 Del Method 01/15/25 07:54 36.7 C 75 16 128/74 95 Room Air Laboratory Results 01/15/25 06:17 01/15/25 06:17 blood cx NGTD PG Care Time/CCT Total # of Minutes Spent Total Time Spent with Patient: Total time spent is greater than 50% in coordination of care (as documented) at patient's floor/unit and/or counseling patient: Coding Level of Care Code 95165 SUB INP/OBS CARE 3/50MIN Diagnoses Partial small bowel obstruction K56.600 C. difficile colitis A04.72 Diabetes type [address] Z93.3 HTN (hypertension) I10 Opioid dependence F11.20
--- NOTE | 2025-01-15 13:15 | Pharmacy Report ---
Pharmacy Glycemic Short Note 2 - Date of Service January 15, 2025 - Glycemic Short BSG Results (Last 24 hours): 01/14/25 01/14/25 01/15/25 15:10 20:27 00:44 Glucose 215 H POC Glucose 224 H 274 H 01/15/25 01/15/25 01/15/25 06:03 06:17 07:17 Glucose 288 H POC Glucose 287 H 277 H 01/15/25 11:41 Glucose POC Glucose 272 H OUTPATIENT ANTIDIABETIC REGIMEN: * Novolog pump * Per [facility] records: basal rate 1.9 units/hr, CF of 38, and carb ratio of 7 (~88 units of insulin/day average) HbA1c: 8.6% (01/15/25) ASSESSMENT: * KD is a 59 year old male with partial small bowel obstruction vs. ileus s/p right hemicolectomy/colostomy on 11/16/24 * History of T1DM, managed with insulin pump - initial plan was to continue insulin pump during admission but stopped overnight * Of note, no basal insulin was administered overnight following insulin pump discontinuation * Unsurprisingly, patient hyperglycemic this morning * Patient is NPO, but receiving D5-1/2 NSS + 20 KCl @125 mL/hr * Plan is for patient's friends to bring in insulin pump supplies to potentially resume pump * Will aim for regimen similar to that provided by insulin pump PLAN FOR INPATIENT GLYCEMIC CONTROL: * Holding insulin pump for now * Basal insulin * Lantus 30 units SQ x 1 this AM * Lantus 10 units SQ x 1 at lunch * Bolus insulin * NovoLog per scale ACHS or Q6hrs while NPO * Goal Range: Low 120 mg/dL - High 160 mg/dL * Correction Factor: 35 mg/dL/unit * Nutritional / Prandial insulin per carb ratio of 1 unit per 7 grams CHO consumed
--- NOTE | 2025-01-15 18:38 | Surgery Consultation ---
<Statement entered by Jaylan Cisneros DO - 01/15/25 19:10> I have seen and examined this patient, I agree with this plan Date of Consultation January 15, 2025 Assessment & Plan (1) Partial small bowel obstruction: Plan CT scan reviewed, no evidence of perforation or pneumoperitoneum, patient does not have overt peritoneal signs, so no indication for emergent surgical exploration at this time. If the patient should need surgical intervention, w kentrell recommend transfer to [facility] where his original surgery was performed. But for now, we will attempt conservative treatment of his small bowel obstruction, keep n.p.o., NG tube for decompression, IV fluids, IV pain medication as needed, no clear indication for IV antibiotics, okay from a surgical standpoint for pharmacologic DVT prophylaxis. Remainder of his care per the primary medicine team, general surgery will continue to follow for now. History of Present Illness Reason for Consultation: abd pain, s/p right colectomy with possible ileus vs SBO Attending Physician: Macie Garcia MD History of Present Illness Patient is a 59-year-old male with a past medical history significant for hypertension, type 1 diabetes, opioid dependence, and history of a right hemicolectomy on November 16, 2024 at [facility] in [place] due to a reported abscess in the right colon. During that admission, he was found to have C. difficile as well as bacteremia and required a prolonged course of IV and oral antibiotics which he finished recently. He states that he has been recovering and feeling well until yesterday when he developed significant amount of generalized abdominal pain, nausea, vomiting, and chills/sweats. He states that his abdominal pain had persisted and increased in severity, so he came to the emergency department for evaluation. Upon his initial evaluation he was hemodynamically stable and afebrile. His exam was significant for a mildly distended abdomen that was diffusely tender to palpation, but soft and without overt peritoneal signs. His labs were relatively unremarkable with a normal white blood cell count, but a markedly elevated glucose. He had a CAT scan of the abdomen pelvis which showed findings of mildly dilated proximal loops of small bowel concerning for possible small bowel obstruction versus ileus. He was admitted to the medical service and general surgery was consulted. An NG tube was placed in the emergency department and reportedly did provide the patient some relief with his abdominal pain. Allergies Allergy/AdvReac Type Severity Reaction Status Date / Time nitrous oxide Allergy Severe RESPIRATORY Verified 10/08/16 13:36 PROBLEMS carbamazepine Allergy Unknown RASH AND Verified 10/08/16 13:36 SORES ON HANDS chocolate flavor Allergy Unknown "ITCHING Verified 10/08/16 13:36 AND TONGUE FEELS FUNNY" citalopram Allergy Unknown HEART Verified 10/08/16 13:36 PALPITATIONS promethazine Allergy Unknown BLE Verified 10/08/16 13:36 NUMBNESS AND SEIZURE-LIKE ACTIVITY tomato Allergy Unknown "ITCHING Verified 10/08/16 13:36 AND TONGUE FEELS FUNNY" aspirin AdvReac Mild BLEEDING Verified 10/08/16 13:36 FROM ?ORAFICE Home Medications Medication Instructions Recorded Confirmed Type OMEPRAZOLE (PRILOSEC) 20 mg PO QPM ##0 06/08/09 History ATORVASTATIN (LIPITOR) 10 mg PO QPM ##0 10/06/16 History Clonazepam (Klonopin) 1 mg PO DAILY PRN Anxiety ##0 10/06/16 History DEXLANSOPRAZOLE (DEXILANT) 1 cap PO QAM ##0 10/06/16 History FLUOXETINE HCL (PROZAC) 20 mg PO QPM ##0 10/06/16 History Lisinopril (Zestril) 20 mg PO QPM ##0 10/06/16 History Patient History Social History Smoking Status: Never smoker Second Hand Exposure: No; Do You Dip or Chew Tobacco: No; Tobacco Cessation Education Requested by Patient: No Hx Alcohol Use: No Hx Substance Use: No Preferred Language: Bur[place]ian Communication Ability: [facility] Consultant Required: No Beliefs That Will Affect Care: None Current Living Situation: Alone Feels Safe at Home: Yes Safety Concerns: Feels Safe At This Time Assistive Devices: Glasses Review of Systems Review of Systems: All systems reviewed & are unremarkable except as noted in HPI & below Physical Exam Physical Exam: Gen: Awake and alert, resting comfortably in bed in NAD CV: RRR PULM: non-labored breathing Abd: Abd soft, slightly distended, moderate generalized tenderness to palpation, seems slightly worse on the right side, ileostomy to right side abdomen with liquid stool in bag, stoma appears pink and viable. Large midline surgical scar is well-healed. ext: no edema to bilateral lower ext, SCDs in place, non-tender, feet warm and well perfused Results & Data Vital Signs (Past 12 Hours) Vital Signs Temp Pulse Resp BP Pulse Ox O2 Del Method 01/15/25 15:23 36.8 C 78 18 127/81 92 Room Air 01/15/25 07:54 36.7 C 75 16 128/74 95 Room Air Diagnostic Findings CT abdomen pelvis: FINDINGS: CT ABDOMEN: LUNG BASES:Small hiatal hernia. Lung bases are clear. LIVER: No worrisome hepatic lesions. Hepatic steatosis. Mild intrahepatic biliary ductal dilatation SPLEEN: Unremarkable. GALLBLADDER: Cholecystectomy. KIDNEYS: No hydronephrosis or nephrolithiasis. No solid renal lesions. PANCREAS: The body and tail of the pancreas are not visualized, possibly surgically absent. ADRENAL GLANDS: Unremarkable. PROXIMAL BOWEL: Mildly dilated loops of small bowel in the left upper quadrant suggestive of partial obstruction or ileus. RETROPERITONEUM: No AAA. No significant lymphadenopathy. OTHER: Right lower quadrant ostomy. CT PELVIS: URINARY BLADDER: Unremarkable. PELVIC ORGANS: Unremarkable. DISTAL BOWEL: There is some mild retained stool in the colon. There is some oral contrast in the visualized portions of the colon. OTHER: No significant lymphadenopathy. There is no free pelvic fluid. IMPRESSION: There are some mildly dilated fluid-filled loops of proximal small bowel in the left upper quadrant, suggestive of partial small bowel obstruction or ileus. PG Care Time/CCT Total # of Minutes Spent Total Time Spent with Patient: Total time spent is greater than 50% in coordination of care (as documented) at patient's floor/unit and/or counseling patient: [place] [address] IN/OBS CONSULT LVL 5,80M Patient Type New History Problem Focused Exam Problem Focused Medical Decision Making Straight Forward Diagnoses Partial small bowel obstruction K56.600
[2025-01-16 02:07] LABS: Adenovirus F 40/41 PCR Not Detected (NotDetected); Campylobacter PCR Not Detected (NotDetected); Enteroaggregative E.coli(EAEC) Not Detected (NotDetected); Shiga-like Toxin E.coli (STEC) Not Detected (NotDetected); Vibrio species PCR Not Detected (NotDetected)
[2025-01-16 07:35] LABS: Hematocrit (blood only) 42.5 % (42.0-52.0); Hemoglobin 13.9 g/dL (14.0-18.0); Mean Corpuscular Hemoglobin 27.3 pg (25.0-34.0); Mean Corpuscular Volume 83.5 fL (80.0-100.0); Platelet Count 208 K/uL (130-400); RDW Standard Deviation 42.6 fL (36.4-46.3); Red Blood Count 5.09 M/uL (4.70-6.10); White Blood Count 6.13 K/ul (4.8-10.8)
[2025-01-16 07:49] LABS: Alanine Aminotransferase 28.0 U/L (7-52); Albumin Globulin Ratio 1.4 (0.9-2); Albumin Level 4.4 gm/dl (3.4-5.0); Alkaline Phosphatase 77.0 U/L (34-104); Anion Gap 9.0 (3-11); Bilirubin,Total 0.4 mg/dl (0.2-1.0); Blood Urea Nitrogen 12.0 mg/dl (6-23); Calcium 8.5 mg/dl (8.6-10.3); Carbon Dioxide 26.0 mmol/L (21-32); Chloride 101.0 mmol/L (98-107); Creatinine Clr Calc Pharmacy 128.6 ml/min; Globulin 3.1 gm/dl (2.5-4.0); Glucose 280.0 mg/dl (70-99(Fasting)); Magnesium 1.8 mg/dl (1.7-2.4); Potassium 4.1 mmol/L (3.5-5.1); Sodium 136.0 mmol/L (136-145); Total Protein 7.5 gm/dl (6.0-8.3)
[2025-01-16] MEDS: LANTUS PER UNIT CHARGE SC SCH (08:29)
[2025-01-16] MEDS: MAGNESIUM SULFATE / D5W 1 GM/100 ML BAG IV SCH (09:43)
[2025-01-16] MEDS: HYDROmorphone INJ 1 MG/ML SYRINGE IV ONE (10:05)
--- NOTE | 2025-01-16 10:35 | Surgery Progress Note ---
Date of Service January 16, 2025 Assessment & Plan (1) Partial small bowel obstruction: Plan S/p right hemicolectomy at [place] 11/30/24. His surgeon is planning for ileostomy takedown in 6 months. Continue with conservative management and the patient states he has not really been ambulating much. Had a small amount of nausea this am. Treated with antiemetic Afebrile, HD stable, no leukocytosis Continue conservative management IVF, NPO Continue NGT to LIWS while in the room Disconnect to ambulate out in the galan Ambulate aggressively QID If still no further improvement in symptoms tomorrow, consider SBFT if still passing flatus IF patient does not improve and requires surgical intervention, he will need to be transferred back to his surgeon in [place] Admission and Anticipated Discharge Date Admission Date: January 14, 2025 Subjective Pt seen and examined. Admits to continued abdominal pain. Had some nausea this am. Physical Exam Constitutional: average body habitus; not ill appearing, not in distress and not diaphoretic Respiratory: normal respiratory effort; no respiratory distress, no labored breathing and does not use accessory muscles Cardiovascular: Rate/Rhythm: regular rate; not tachycardic Gastrointestinal (Abdomen): Inspection/Auscultation: abdomen not distended Percussion/Palpation: + abdomen tender (moderate lower abdomen b/l worse LLQ), + guarding (voluntary) and abdomen soft ostomy viable with liquid stool and gas in the bag Results & Data Vital Signs (Past 12 Hours) Vital Signs Temp Pulse Resp BP Pulse Ox O2 Del Method 01/16/25 07:20 36.6 C 85 16 117/79 93 Room Air 01/16/25 00:02 36.7 C 82 18 118/73 93 Room Air PG Care Time/CCT Total # of Minutes Spent Total Time Spent with Patient: Total time spent is greater than 50% in coordination of care (as documented) at patient's floor/unit and/or counseling patient: Coding Level of Care Code 89585 SUB INP/OBS CARE 03/12MIN Diagnoses Partial small bowel obstruction K56.600
--- NOTE | 2025-01-16 13:44 | Pharmacy Report ---
Pharmacy Glycemic Short Note 2 - Date of Service January 16, 2025 - Glycemic Short BSG Results (Last 24 hours): 01/15/25 01/16/25 01/16/25 17:59 00:11 06:04 Glucose POC Glucose 294 H 252 H 267 H 01/16/25 01/16/25 06:54 11:26 Glucose 280 H POC Glucose 248 H OUTPATIENT ANTIDIABETIC REGIMEN: * Novolog pump * Per [facility] records: basal rate 1.9 units/hr, CF of 38, and carb ratio of 7 (~88 units of insulin/day average) HbA1c: 8.6% (01/15/25) ASSESSMENT: 01/16: * Discussed with patient this morning, patient requires new supplies to reconnect pump, was uncertain what time they could be brought in. Therefore proceeded with AM lantus dose, increased to 42 units. * Continues NPO/D%1/2NS+20KCL @ 125 ml. BSGs have been elevated in the 200s since admission. Tightened correction factor-- consider additional coverage for dextrose but may have risk of hypoglycemia if discontinued abruptly/rate decreased. Currently providing 6.25 gm dextrose/hour 01/15: * KD is a 59 year old male with partial small bowel obstruction vs. ileus s/p right hemicolectomy/colostomy on 11/16/24 * History of T1DM, managed with insulin pump - initial plan was to continue insulin pump during admission but stopped overnight * Of note, no basal insulin was administered overnight following insulin pump discontinuation * Unsurprisingly, patient hyperglycemic this morning * Patient is NPO, but receiving D5-1/2 NSS + 20 KCl @125 mL/hr * Plan is for patient's friends to bring in insulin pump supplies to potentially resume pump * Will aim for regimen similar to that provided by insulin pump PLAN FOR INPATIENT GLYCEMIC CONTROL: * Holding insulin pump for now * Basal insulin * Lantus 42 units qAM * Bolus insulin * NovoLog per scale ACHS or Q6hrs while NPO * Goal Range: Low 120 mg/dL - High 150 mg/dL * Correction Factor: 25 mg/dL/unit * Nutritional / Prandial insulin per carb ratio of 1 unit per 7 grams CHO consumed
--- NOTE | 2025-01-16 16:39 | Hospitalist Progress Note ---
Date of Service January 16, 2025 Assessment & Plan (1) Partial small bowel obstruction: (2) C. difficile colitis: (3) Diabetes type 1: (4) Colostomy in place: (5) HTN (hypertension): (6) Opioid dependence: Plan 59 y/o who had R hemicolectomy and colostomy on 11/16, subsequently completed treatment for C. diff and bloodstream infection, who presents with acute abdominal pain. Found to have partial SBO vs ileus on CT abdomen/pelvis # Partial SBO vs ileus. - C. diff toxin, stool biofire negative - continue NG tube to LIS - output still elevated - continue IVF with D5 / NS + 20K - no longer distended after NGT, but continues to have RLQ pain and nausea. continues to have liquid stool and gas output - reviewed recs in surgery note today Reviewed records from [facility] - recent hospitalization and surgery. Summary: PMH includes necrotizing pancreatitis with necrosectomy in 2020, resultant DM type 1 and pancreatic insufficiency, HTN, Mccoy's/GERD, thyroid cancer s/p thyroidectomy and postop hypothyroidism, chronic abdominal pain with opioid dependence, HTN, asthma, depression, panic disorder Presented with abdominal pain, obstipated, rhabdo, TERRANCE. Had ileus and colonic pseudo-obstruction so was transferred from OSH to [facility]. Treated with neostigmine in their ICU. Had BM finally, colonoscopy with findings concerning for immanent perforation of ascending colon. Underwent ex lap, R hemicolectomy, mucus fistula, colostomy and flex sig on 11/16. Stool sample came back +C. diff. ID consulted, treated with po/rectal vancomycin and IV metronidazole. Initially improved but developed worsening distention 11/25 and fever on 11/29. Found to have staph epi bacteremia related to RUE septic thrombophlebitis. ROME negative for vegetations. Treated with IV vancomycin/daptomycin through 01/02/25. He also was found to have had severe hypothyroidism, which could have provoked the ileus, and levothyroxine dose was increased. I reviewed imaging he had negative CTPA and no vascular problems on abd CTA, abdominal CTs as expected also noting cholecystectomy and hepatic steatosis. # DM type 1 - A1c 8.6% [place] so treating with glargine and SQ aspart. Discussed with pharmacist for assistance with glycemic management. Currently on D5 at 125 with BGs around 200 - a little too high but acceptable, no hypoglycemias. Glargine increased to 42u this AM # HTN, HLD -hold antihypertensives and statin until taking po # GERD/Mccoy's - IV pepcid to replace dexlansoprazole. Try to transition to pepcid instead of PPI for GERD because of risk of recurrent C. diff # Anxiety, mood disorder -usually takes clonazepam prn - replace with low dose IV lorazepam PRN -fluoxetine held until taking po # Recent staph epi bacteremia related to RUE septic thrombophlebitis. ROME was negative. Completed a month of abx with daptomycin on 01/02/25 per [employer] ID - follow blood cultures - ngtd # postprocedural hypothyroidism - Hx thyroidectomy for thyroid Ca - possibly caused his colonic pseudoobstruction. Could have been compliance or absorption issues. [place] [facility] [place] usual dose is 250 mcg daily - start IV if prolonged NPO, check AM TSH # pancreatic insufficiency - hx necrotizing pancreatitis which required necrosectomy (remotely) - resume creon when taking po # chronic pain, opioid dependence. - per PDMP uses fentanyl patch 75 mcg and also oxycodone 20 mg qid prn - continue fentanyl patch. Calculated current IV hydromorphone use and it is greater than his typical po oxycodone so ongoing withdrawal should not be occurring - will need opioid tolerant dosing # DVT ppx - enoxaparin Admission and Anticipated Discharge Date Admission Date: January 14, 2025 Subjective Continues output of liquid and gas from ostomy Continues to have severe RLQ pain and nausea NG output was 1450 last 24h Physical Exam Physical Exam: Last 24h vitals reviewed GEN: sitting in bed NAD HEENT: pupils equal, sclerae anicteric, moist MM. Postsurgical changes to right side of face and neck, well healed. L eye EOMI. R eye dysconjugate RESP: normal WOB, CTAB CV: reg no mrg ABD: nondistended, liquid brown stool from RLQ colostomy which is pink / well perfused. RLQ tenderness persists though seems improved : no love SKIN: warm and dry, no generalized rashes NEURO: AOx person, place, and situation. speech normal, moves 4 ext spontaneously and equally Results & Data Results & Data Vital Signs (Past 12 Hours) Vital Signs Temp Pulse Resp BP Pulse Ox O2 Del Method 01/16/25 14:28 36.6 C 80 16 118/80 94 Room Air 01/16/25 07:20 36.6 C 85 16 117/79 93 Room Air PG Care Time/CCT Total # of Minutes Spent Total Time Spent with Patient: I personally spent: 55 minutes today on clinical care activities including: reviewing chart notes and vital signs reviewing labs examining and counseling the patient obtaining and reviewing records from [facility] writing orders documentation Coding Level of Care Code 38459 SUB INP/OBS CARE 3/50MIN Diagnoses Partial small bowel obstruction K56.600 C. difficile colitis A04.72 Diabetes type [address] Z93.3 HTN (hypertension) I10 Opioid dependence F11.20
[2025-01-17 07:21] LABS: Hematocrit (blood only) 41.8 % (42.0-52.0); Hemoglobin 13.7 g/dL (14.0-18.0); Mean Corpuscular Hemoglobin 27.3 pg (25.0-34.0); Mean Corpuscular Volume 83.4 fL (80.0-100.0); Platelet Count 195 K/uL (130-400); RDW Standard Deviation 43.3 fL (36.4-46.3); Red Blood Count 5.01 M/uL (4.70-6.10); White Blood Count 5.55 K/ul (4.8-10.8)
[2025-01-17 08:03] VITALS: RESP 18
[2025-01-17 08:03] LABS: Alanine Aminotransferase 32.0 U/L (7-52); Albumin Globulin Ratio 1.4 (0.9-2); Albumin Level 4.2 gm/dl (3.4-5.0); Alkaline Phosphatase 73.0 U/L (34-104); Anion Gap 7.0 (3-11); Bilirubin,Total 0.4 mg/dl (0.2-1.0); Blood Urea Nitrogen 10.0 mg/dl (6-23); Calcium 8.1 mg/dl (8.6-10.3); Carbon Dioxide 27.0 mmol/L (21-32); Chloride 101.0 mmol/L (98-107); Creatinine Clr Calc Pharmacy 133.6 ml/min; Globulin 3.0 gm/dl (2.5-4.0); Glucose 230.0 mg/dl (70-99(Fasting)); Magnesium 2.1 mg/dl (1.7-2.4); Potassium 4.0 mmol/L (3.5-5.1); Sodium 135.0 mmol/L (136-145); Total Protein 7.2 gm/dl (6.0-8.3)
[2025-01-17] MEDS: LANTUS PER UNIT CHARGE SC SCH (09:08)
[2025-01-17] MEDS ORDERED: INSULIN ASPART PER UNIT CHARGE SC SCH (12:00)
[2025-01-17] MEDS: INSULIN ASPART PER UNIT CHARGE SC SCH (12:00)
--- NOTE | 2025-01-17 12:09 | Pharmacy Report ---
Pharmacy Glycemic Short Note 2 - Date of Service January 17, 2025 - Glycemic Short BSG Results (Last 24 hours): 01/17/25 01/17/25 01/17/25 00:24 06:08 06:52 Glucose 230 H POC Glucose 205 H 220 H 01/17/25 11:48 Glucose POC Glucose 187 H OUTPATIENT ANTIDIABETIC REGIMEN: * Novolog pump * Per [facility] records: basal rate 1.9 units/hr, CF of 38, and carb ratio of 7 (~88 units of insulin/day average) HbA1c: 8.6% (01/15/25) ASSESSMENT: 01/17: * Discussed with patient and special education paraeducator, insulin pump supplies are here, however patient has recently switched to medtronic pump and it is still "learning". Will wait to transition until patient is taking reliable oral intake * Reviewed outpatient use in last 1-2 weeks provided by educator, ranging ~150- 170 units/day. Basal decreasing but higher than current dosing inpatient (patient NPO). * BSGs in mid 200s with dextrose continuing to infuse. Will increase basal ~10% today. Also tightened novolog correction factor. Carbs from dextrose covered with lunch--- will remove this for now and monitor. 01/16: * Discussed with patient this morning, patient requires new supplies to reconnect pump, was uncertain what time they could be brought in. Therefore proceeded with AM lantus dose, increased to 42 units. * Continues NPO/D%1/2NS+20KCL @ 125 ml. BSGs have been elevated in the 200s since admission. Tightened correction factor-- consider additional coverage for dextrose but may have risk of hypoglycemia if discontinued abruptly/rate decreased. Currently providing 6.25 gm dextrose/hour 01/15: * KD is a 59 year old male with partial small bowel obstruction vs. ileus s/p right hemicolectomy/colostomy on 11/16/24 * History of T1DM, managed with insulin pump - initial plan was to continue insulin pump during admission but stopped overnight * Of note, no basal insulin was administered overnight following insulin pump discontinuation * Unsurprisingly, patient hyperglycemic this morning * Patient is NPO, but receiving D5-1/2 NSS + 20 KCl @125 mL/hr * Plan is for patient's friends to bring in insulin pump supplies to potentially resume pump * Will aim for regimen similar to that provided by insulin pump PLAN FOR INPATIENT GLYCEMIC CONTROL: * Holding insulin pump for now * Basal insulin * Lantus 46 units qAM * Bolus insulin * NovoLog per scale ACHS or Q6hrs while NPO * Goal Range: Low 120 mg/dL - High 150 mg/dL * Correction Factor: 20 mg/dL/unit * Nutritional / Prandial insulin per carb ratio of 1 unit per 6 grams CHO consumed
--- NOTE | 2025-01-17 15:26 | XRay Report ---
KUB HISTORY: Acute generalized abdominal pain with reported obstruction eval sbo COMPARISON: KUB 01/15/2025, CT 01/14/2025 FINDINGS: Distal tip of enteric tube projects over the gastric cardia. Cholecystectomy. Mild retained enteric contrast within the rectosigmoid. Borderline dilation of several air-filled mid abdominal sm all bowel loops again noted measuring up to 2.8 cm, previously 4.2 cm. Right mid abdominal ostomy. No renal calculi. No ureteral calculi. No pneumoperitoneum or pneumatosis. No fracture. IMPRESSION: 1. Satisfactory positioning of the enteric tube. 2. Borderline dilation of mid abdominal small bowel loops has improved from prior CT. ACT 112: Negative or not required by law. The above report was generated using voice recognition software. It may contain grammatical, syntax o r spelling errors. Electronically signed by: Jey Bermudez M.D. 01/17/2025 3:25 PM
--- NOTE | 2025-01-17 15:40 | Hospitalist Progress Note ---
Date of Service January 17, 2025 Assessment & Plan (1) Partial small bowel obstruction: (2) C. difficile colitis: (3) Diabetes type 1: (4) Colostomy in place: (5) HTN (hypertension): (6) Opioid dependence: Plan 59 y/o who had R hemicolectomy and colostomy on 11/16, subsequently completed treatment for C. diff and bloodstream infection, who presents with acute abdominal pain. Found to have partial SBO vs ileus on CT abdomen/pelvis # Partial SBO vs ileus. - C. diff toxin, stool biofire negative - continue NG tube to LIS - output still elevated but improved. According to patient surgery service is considering small bowel follow-through, note that in today it - continue IVF with D5 1/2 NS + 20K. Electrolytes are acceptable - no longer distended after NGT, but continues to have RLQ pain and nausea though these have improved a bit. continues to have liquid stool and gas output but no longer diarrhea - used 7 mg IV hydromorphone past 24 hours which is unchanged from previous day - personally reviewed KUB film today NG tube is in place he continues to have dilated loops of small bowel but improved compared to admission Reviewed records from [facility] - recent hospitalization and surgery. Summary: PMH includes necrotizing pancreatitis with necrosectomy in 2020, resultant DM type 1 and pancreatic insufficiency, HTN, Mccoy's/GERD, thyroid cancer s/p thyroidectomy and postop hypothyroidism, chronic abdominal pain with opioid dependence, HTN, asthma, depression, panic disorder Presented with abdominal pain, obstipated, rhabdo, TERRANCE. Had ileus and colonic pseudo-obstruction so was transferred from OSH to [facility]. Treated with neostigmine in their ICU. Had BM finally, colonoscopy with findings concerning for immanent perforation of ascending colon. Underwent ex lap, R hemicolectomy, mucus fistula, colostomy and flex sig on 11/16. Stool sample came back +C. diff. ID consulted, treated with po/rectal vancomycin and IV metronidazole. Initially improved but developed worsening distention 11/25 and fever on 11/29. Found to have staph epi bacteremia related to RUE septic thrombophlebitis. ROME negative for vegetations. Treated with IV vancomycin/daptomycin through 01/02/25. He also was found to have had severe hypothyroidism, which could have provoked the ileus, and levothyroxine dose was increased. I reviewed imaging he had negative CTPA and no vascular problems on abd CTA, abdominal CTs as expected also noting cholecystectomy and hepatic steatosis. # DM type 1 - A1c 8.6% [place] so treating with glargine and SQ aspart. Discussed with pharmacist for assistance with glycemic management. Currently on D5 at 125 with BGs around 200 - a little too high but acceptable, no hypoglycemias. glargine increased, blood glucoses in the 200s overnight but was below 180 this morning before lunch - software educator met with him, he does have his insulin pump supplies at the bedside now, doing well on subcu insulin so continue until he starts taking p.o. then resume pump # HTN, HLD -hold antihypertensives and statin until taking po # GERD/Mccoy's - IV pepcid to replace dexlansoprazole. Try to transition to pepcid instead of PPI for GERD because of risk of recurrent C. diff # Anxiety, mood disorder -usually takes clonazepam prn - replace with low dose IV lorazepam PRN -fluoxetine held until taking po # Recent staph epi bacteremia related to RUE septic thrombophlebitis. ROME was negative. Completed a month of abx with daptomycin on 01/02/25 per [employer] ID - follow blood cultures - ngtd # postprocedural hypothyroidism - Hx thyroidectomy for thyroid Ca - possibly caused his colonic pseudoobstruction. Could have been compliance or absorption issues. [place] [facility] [place] usual dose is 250 mcg daily - start IV if prolonged NPO more than a few more days, consider check TSH # pancreatic insufficiency - hx necrotizing pancreatitis which required necrosectomy (remotely) - resume creon when taking po # chronic pain, opioid dependence. - per PDMP uses fentanyl patch 75 mcg and also oxycodone 20 mg qid prn - continue fentanyl patch. Calculated current IV hydromorphone use and it is greater than his typical po oxycodone so ongoing withdrawal should not be occurring - need opioid tolerant dosing # DVT ppx - enoxaparin Admission and Anticipated Discharge Date Admission Date: January 14, 2025 Subjective Reports improved abdominal pain compared to 48 hours ago. Preparing to walk. NG output decreased to 1000 mL in the last 24 hours. Colostomy output more normal, brown liquid stool and gas, less profuse than 48 hours ago. Intermittent nausea, no emesis, low appetite. Physical Exam Physical Exam: General Appearance: Awake, alert, oriented x4, sitting up at the edge of the bed. Vital signs: Reviewed past 24h vital signs in EMR, unremarkable. HEENT: Within normal limits. Respiratory: Clear to auscultation bilaterally. No rhonchi, rales, or wheezes. Cardiovascular: Regular heart rhythm. No murmurs, rubs, or gallops. Gastrointestinal: Abdomen soft, nondistended, mildly tender in RLQ and medial to colostomy. Ostomy pink, well perfused, brown liquid stool and gas in bag. Active bowel sounds. Genitourinary: Lymphatic: Back, Musculoskeletal: Extremities: warm and well perfused, no LE edema. Skin: Warm and dry, no rash. Neurological: AOx4, normal speech and mentation, daley x 4. Psychiatric: Normal. Other observations: Results & Data Results & Data Vital Signs (Past 12 Hours) Vital Signs Temp Pulse Resp BP Pulse Ox O2 Del Method 01/17/25 14:56 36.5 C 102 H 18 145/99 H 95 Room Air 01/17/25 07:59 36.7 C 70 18 122/78 93 Room Air Laboratory Results - Blood glucose: ranged from 205-248, this morning after a.m. glargine in the 180s - WBC: 5 - Hemoglobin: 13.7 - Sodium: 135 - Potassium: 4.0 - Creatinine: 0.77 - Magnesium: 2.1 - LFTs: Normal PG Care Time/CCT Total # of Minutes Spent Total Time Spent with Patient: Total time spent is greater than 50% in coordination of care (as documented) at patient's floor/unit and/or counseling patient: Coding Level of Care Code 59630 SUB INP/OBS CARE 3/50MIN Diagnoses Partial small bowel obstruction K56.600 C. difficile colitis A04.72 Diabetes type [address] Z93.3 HTN (hypertension) I10 Opioid dependence F11.20
--- NOTE | 2025-01-17 15:50 | Surgery Progress Note ---
<Statement entered by Monica Rivera MD - 01/17/25 15:53> I saw the patient with the physician golf player assistant and I agree w the assessment and plan of care. Date of Service January 17, 2025 Assessment & Plan (1) Partial small bowel obstruction: Plan: S/p right hemicolectomy at [place] 11/30/24. His surgeon is planning for ileostomy takedown in 6 months. NGT 250cc over last 12 hours. Having + ostomy function Remains with some LLQ pain that is mildly improved KUB today shows improvement in dilated loops of small bowel Can trial removing NGT and starting sips/chips Needs encouragement to ambulate If patient does not improve and requires surgical intervention, he will need to be transferred back to his surgeon in [place] Admission and Anticipated Discharge Date Admission Date: January 14, 2025 Subjective Patient feels mildly better than yesterday. Some stool output in the bag. Some LLQ discomfort remains. Physical Exam Physical Exam: awake/alert Gastrointestinal (Abdomen): Percussion/Palpation: + abdomen tender (some LLQ discomfort to palpation) and abdomen soft + ostomy viable with small amount of liq uid stool in the bag Results & Data Vital Signs (Past 12 Hours) Vital Signs Temp Pulse Resp BP Pulse Ox O2 Del Method 01/17/25 14:56 97.7 F 102 H 18 145/99 H 95 Room Air 01/17/25 07:59 98.1 F 70 18 122/78 93 Room Air PG Care Time/CCT Total # of Minutes Spent Total Time Spent with Patient: Total time spent is greater than 50% in coordination of care (as documented) at patient's floor/unit and/or counseling patient: Coding Level of Care Code 85876 SUB INP/OBS CARE 03/12MIN Diagnoses Partial small bowel obstruction K56.600
[2025-01-18 07:26] LABS: Hematocrit (blood only) 42.5 % (42.0-52.0); Hemoglobin 14.0 g/dL (14.0-18.0); Mean Corpuscular Hemoglobin 27.9 pg (25.0-34.0); Mean Corpuscular Volume 84.7 fL (80.0-100.0); Platelet Count 201 K/uL (130-400); RDW Standard Deviation 43.7 fL (36.4-46.3); Red Blood Count 5.02 M/uL (4.70-6.10); White Blood Count 6.57 K/ul (4.8-10.8)
[2025-01-18 07:44] LABS: Alanine Aminotransferase 38.0 U/L (7-52); Albumin Globulin Ratio 1.4 (0.9-2); Albumin Level 4.2 gm/dl (3.4-5.0); Alkaline Phosphatase 73.0 U/L (34-104); Anion Gap 8.0 (3-11); Bilirubin,Total 0.5 mg/dl (0.2-1.0); Blood Urea Nitrogen 10.0 mg/dl (6-23); Calcium 8.2 mg/dl (8.6-10.3); Carbon Dioxide 26.0 mmol/L (21-32); Chloride 102.0 mmol/L (98-107); Creatinine Clr Calc Pharmacy 125.4 ml/min; Globulin 2.9 gm/dl (2.5-4.0); Glucose 137.0 mg/dl (70-99(Fasting)); Magnesium 2.0 mg/dl (1.7-2.4); Potassium 3.8 mmol/L (3.5-5.1); Sodium 136.0 mmol/L (136-145); Total Protein 7.1 gm/dl (6.0-8.3)
[2025-01-18] MEDS: LANTUS PER UNIT CHARGE SC SCH (09:32)
--- NOTE | 2025-01-18 14:13 | Surgery Progress Note ---
Date of Service January 18, 2025 Assessment & Plan (1) Partial small bowel obstruction: Plan: S/p right hemicolectomy at [place] 11/30/24. His surgeon is planning for ileostomy takedown in 6 months NGT was removed yesterday, he has since done well without nausea/vomiting and is having + bowel function Will advance diet to clears and see how he fairs He continues with some LLQ pain and crampiness we will continue to monitor Encourage OOB/ambulation If patient does not improve and requires surgical intervention, he will need to be transferred back to his surgeon in [place] Admission and Anticipated Discharge Date Admission Date: January 14, 2025 Subjective Patient reports feeling good since NGT has been removed. Some stable ongoing LLQ pain and crampiness. But he denies any nausea/vomiting. His ostomy has gas and stool in the bag. He has been ambulating Physical Exam Physical Exam: awake/alert, no distress Gastrointestinal (Abdomen): Inspection/Auscultation: abdomen not distended Percussion/Palpation: + abdomen tender (ttp in the LLQ) and abdomen soft + viable ostomy with large amount of gas in bag and some liquid stool Results & Data Vital Signs (Past 12 Hours) Vital Signs Pulse Resp BP Pulse Ox O2 Del Method 01/18/25 07:20 70 18 126/87 93 Room Air PG Care Time/CCT Total # of Minutes Spent Total Time Spent with Patient: Total time spent is greater than 50% in coordination of care (as documented) at patient's floor/unit and/or counseling patient: Coding Level of Care Code 83090 SUB INP/OBS CARE 03/12MIN Diagnoses Partial small bowel obstruction K56.600
--- NOTE | 2025-01-18 14:43 | Pharmacy Report ---
Pharmacy Glycemic Short Note 2 - Date of Service January 18, 2025 - Glycemic Short BSG Results (Last 24 hours): 01/17/25 01/17/25 01/18/25 18:26 22:58 05:28 Glucose POC Glucose 128 H 197 H 137 H 01/18/25 01/18/25 06:54 11:44 Glucose 137 H POC Glucose 170 H OUTPATIENT ANTIDIABETIC REGIMEN: * Novolog pump * Per [facility] records: basal rate 1.9 units/hr, CF of 38, and carb ratio of 7 (~88 units of insulin/day average) HbA1c: 8.6% (01/15/25) ASSESSMENT: 01/18: * Blood sugars have improved with dextrose fluid stopping last PM, Advanced to clear liquid diet today * Will place basal on hold tomorrow morning to assess appropriateness of transition back to pump,plan to continue with 45 units if not able to transition * Will continue with current Novolog parameters and monitor. BSGs 137-170 mg/dL today. 01/17: * Discussed with patient and hospice educator, insulin pump supplies are here, however patient has recently switched to medtronic pump and it is still "learning". Will wait to transition until patient is taking reliable oral intake * Reviewed outpatient use in last 1-2 weeks provided by educator, ranging ~150- 170 units/day. Basal decreasing but higher than current dosing inpatient (patient NPO). * BSGs in mid 200s with dextrose continuing to infuse. Will increase basal ~10% today. Also tightened novolog correction factor. Carbs from dextrose covered with lunch--- will remove this for now and monitor. 01/16: * Discussed with patient this morning, patient requires new supplies to reconnect pump, was uncertain what time they could be brought in. Therefore proceeded with AM lantus dose, increased to 42 units. * Continues NPO/D%1/2NS+20KCL @ 125 ml. BSGs have been elevated in the 200s since admission. Tightened correction factor-- consider additional coverage for dextrose but may have risk of hypoglycemia if discontinued abruptly/rate decreased. Currently providing 6.25 gm dextrose/hour 01/15: * KD is a 59 year old male with partial small bowel obstruction vs. ileus s/p right hemicolectomy/colostomy on 11/16/24 * History of T1DM, managed with insulin pump - initial plan was to continue insulin pump during admission but stopped overnight * Of note, no basal insulin was administered overnight following insulin pump discontinuation * Unsurprisingly, patient hyperglycemic this morning * Patient is NPO, but receiving D5-1/2 NSS + 20 KCl @125 mL/hr * Plan is for patient's friends to bring in insulin pump supplies to potentially resume pump * Will aim for regimen similar to that provided by insulin pump PLAN FOR INPATIENT GLYCEMIC CONTROL: * Holding insulin pump for now * Basal insulin * Lantus 45 units qAM * Bolus insulin * NovoLog per scale ACHS or Q6hrs while NPO * Goal Range: Low 120 mg/dL - High 150 mg/dL * Correction Factor: 20 mg/dL/unit * Nutritional / Prandial insulin per carb ratio of 1 unit per 6 grams CHO co nsumed
[2025-01-18] MEDS ORDERED: Nursing to Pharmacy Communication SCH (21:15)
[2025-01-18] MEDS: INSULIN ASPART PER UNIT CHARGE SC SCH (22:06)
--- NOTE | 2025-01-19 05:34 | Hospitalist Progress Note ---
Date of Service January 18, 2025 Assessment & Plan (1) Partial small bowel obstruction: (2) C. difficile colitis: (3) Diabetes type 1: (4) HTN (hypertension): (5) Opioid dependence: (6) Ileostomy in place: Plan 59yo with right hemicolectomy and ileostomy creation on 11/16/24 at [facility]. During his near month-long stay had C. diff infection and bacteremia. At time of this admission found to have partial SBO vs ileus on CT abdomen/pelvis. # Partial SBO vs ileus - resolving - - required NG tube placement for such - with resolution of the pSBO the NG tube was successfully removed - now stooling via ileostomy and tolerated clear liquids today - appreciate gen surg assistance - defer diet advancement to gen surg - labs in am # Right hemicolectomy with ileostomy creation - - records from [facility] - synopsis - PMH includes necrotizing pancreatitis with necrosectomy in 2020, resultant DM type 1 and pancreatic insufficiency, HTN, Mccoy's/GERD, thyroid cancer s/p thyroidectomy and postop hypothyroidism, chronic abdominal pain with opioid dependence, HTN, asthma, depression, panic disorder Presented with abdominal pain, obstipated, rhabdo, TERRANCE. Had ileus and colonic pseudo-obstruction so was transferred from OSH to [facility]. Treated with neostigmine in their ICU. Had BM finally, colonoscopy with findings concerning for immanent perforation of ascending colon. Underwent ex lap, R hemicolectomy, mucus fistula, ileostomy and flex sig on 11/16. Stool sample came back +C. diff. ID consulted, treated with po/rectal vancomycin and IV metronidazole. Initially improved but developed worsening distention 11/25 and fever on 11/29. Found to have staph epi bacteremia related to RUE septic thrombophlebitis. ROME negative for vegetations. Treated with IV vancomycin/daptomycin through . He also was found to have had severe hypothyroidism, which could have provoked the ileus, and levothyroxine dose was increased. # DM type 1 - A1c 8.6% - - breastfeeding educator met with patient - does have his insulin pump supplies at the bedside - doing well on SC basal-bolus; resume pump in the next 1-2 days # HTN - - hold antihypertensives - BPs controlled w/o them (coreg, lisinopril) # hyperlipidemia - - can resume statin # GERD/Mccoy's - - resume PPI - can stop IV pepcid # Anxiety, mood disorder - - usually takes clonazepam prn - currently on IV lorazepam PRN -can resume clonazepam tomorrow - resume fluoxetine # Recent staph epi bacteremia related to RUE septic thrombophlebitis - - ROME was negative - Completed a month of daptomycin on 01/02/25 per [facility] # postprocedural hypothyroidism - Hx thyroidectomy for thyroid Ca - - synthroid dose is 250 mcg daily; can likely resume tomorrow - check TSH am # pancreatic insufficiency - - hx necrotizing pancreatitis which required necrosectomy - resume creon likely next 1-2 days # chronic pain, opioid dependence - - per PDMP uses fentanyl patch 75 mcg and also oxycodone 20 mg qid prn - continue fentanyl patch - resume oxy likely tomorrow # DVT ppx - - enoxaparin 40mg daily progressing nicely Admission and Anticipated Discharge Date Admission Date: January 14, 2025 Subjective feels well has chronic left-sided abd pain but this is at baseline today no nausea/vomiting tolerated ice chips/sips overnight then tolerated clear liquid tray today copious output from his ileostomy Review of Systems Review of Systems: gen - no fevers pulm - no dyspnea CV - no chest pain Physical Exam Physical Exam: gen - NAD head - large scar right scalp face - facial droop on right neck - no JVD mouth - MMM heart - RRR, s1 s2, no murmur lungs - CTA b/l abd - soft, ND, tender left abdomen, ileostomy with copious liquid stool, BS+ ext - no edema, pulses 2+ b/l feet Results & Data Results & Data Vital Signs (Past 12 Hours) Vital Signs Temp Pulse Resp BP Pulse Ox O2 Del Method 01/18/25 14:22 36.5 C 85 18 132/88 97 Room Air 01/18/25 07:20 70 18 126/87 93 Room Air Laboratory Results Laboratory Results - last 24 hr 01/18/25 01/18/25 06:54 11:44 WBC 6.57 RBC 5.02 Hgb 14.0 Hct 42.5 MCV 84.7 MCH 27.9 MCHC 32.9 RDW Std Deviation 43.7 RDW Coeff of Re 14.2 Plt Count 201 MPV 9.5 Sodium 136 Potassium 3.8 Chloride 102 Carbon Dioxide 26 Anion Gap 8 BUN 10 Creatinine 0.82 Est Cr Clr Drug Dosing 125.4 eGFR 101.82 BUN/Creatinine Ratio 12.2 Glucose 137 H POC Glucose 170 H Calcium 8.2 L Magnesium 2.0 Total Bilirubin 0.5 AST 41 H ALT 38 Alkaline Phosphatase 73 Total Protein 7.1 Albumin 4.2 Globulin 2.9 Albumin/Globulin Ratio 1.4 PG Care Time/CCT Total # of Minutes Spent Total Time Spent with Patient: Total time spent is greater than 50% in coordination of care (as documented) at patient's floor/unit and/or counseling patient: Coding Level of Care Code 92565 SUB INP/OBS CARE 2/35MIN Diagnoses Partial small bowel obstruction K56.600 C. difficile colitis A04.72 Diabetes type 1 E10.9 HTN (hypertension) I10 Opioid dependence F11.[address] Z93.2
[2025-01-19 07:39] LABS: Anion Gap 9.0 (3-11); Blood Urea Nitrogen 10.0 mg/dl (6-23); Calcium 8.3 mg/dl (8.6-10.3); Carbon Dioxide 23.0 mmol/L (21-32); Chloride 103.0 mmol/L (98-107); Creatinine Clr Calc Pharmacy 121.0 ml/min; Glucose 188.0 mg/dl (70-99(Fasting)); Potassium 3.6 mmol/L (3.5-5.1); Sodium 135.0 mmol/L (136-145)
[2025-01-19] MEDS ORDERED: INSULIN ASPART 100 UNITS/ML VIAL SC PRN (09:00)
[2025-01-19] MEDS: INSULIN, Rapid-Acting PUMP SCH (09:14)
[2025-01-19] MEDS: INSULIN ASPART PER UNIT CHARGE SC ONE (09:50)
--- NOTE | 2025-01-19 11:24 | Surgery Progress Note ---
<Statement entered by Monica Rivera MD - 01/19/25 12:55> I independently saw and examined the patient, and I agree with the assessment and plan of care. Date of Service January 19, 2025 Assessment & Plan (1) Partial small bowel obstruction: Plan: Patient is s/p right hemicolectomy at [place] 11/30/24 with plans for ileostomy takedown in 6 months. Patient admitted here with a partial small bowel obstruction. -Patient overall clinically improving, he is tolerating liquids without any issues of worsening abdominal pain, nausea or vomiting. - Having bowel function - At this time patient can have diet advance as tolerated - Discussed with patient he should follow-up with his surgeon within the next few weeks given recent hospitalization. At this time no plans for any surgical intervention, we will sign off, please recall with any questions or concerns. Admission and Anticipated Discharge Date Admission Date: January 14, 2025 Subjective Patient seen and evaluated this morning, states that he is feeling well. Tolerating clear liquids without any issues of nausea, vomiting, or worsening abdominal pain Ostomy with stool appreciated in bag Physical Exam Constitutional: WD/WN, vitals as above Respiratory: normal respiratory effort, lungs clear to auscultation Cardiovascular: Rate/Rhythm: regular rate Gastrointestinal (Abdomen): Abdomen soft, nondistended, mild tenderness palpation in the left lower quadrant. No rebound, guarding or signs of peritonitis. +viable ostomy with liquid stool Results & Data Vital Signs (Past 12 Hours) Vital Signs Temp Pulse Resp BP BP Pulse Ox O2 Del Method 01/19/25 07:27 36.5 C 89 18 161/98 H 162/111 H 94 Room Air 01/18/25 23:30 36.6 C 77 18 113/73 93 Room Air PG Care Time/CCT Total # of Minutes Spent Total Time Spent with Patient: Total time spent is greater than 50% in coordination of care (as documented) at patient's floor/unit and/or counseling patient: Coding [place] [address] SUB INP/OBS CARE 03/12MIN Patient Type Established History Problem Focused Exam Problem Focused Medical Decision Making Straight Forward Diagnoses Partial small bowel obstruction K56.600
[2025-01-19] MEDS: INSULIN ASPART PER UNIT CHARGE SC SCH (12:50)
[2025-01-19] MEDS: Continuous Glucose Monitor SCH (16:49)
--- NOTE | 2025-01-19 20:34 | Hospitalist Progress Note ---
Date of Service January 19, 2025 Assessment & Plan (1) Partial small bowel obstruction: (2) C. difficile colitis: (3) Diabetes type 1: (4) HTN (hypertension): (5) Opioid dependence: (6) Ileostomy in place: Plan 59yo with right hemicolectomy and ileostomy creation on 11/16/24 at [facility]. During his near month-long stay had C. diff infection and bacteremia. At time of this admission found to have partial SBO vs ileus on CT abdomen/pelvis. # Partial SBO vs ileus - present on admission - resolved - - required NG tube placement for such - with resolution of the pSBO the NG tube was removed - stooling via ileostomy - tolerated clear liquids; advance to full liquids, then regular - appreciate gen surg assistance # Right hemicolectomy with ileostomy creation - - records from [facility] - synopsis - PMH includes necrotizing pancreatitis with necrosectomy in 2020, resultant DM type 1 and pancreatic insufficiency, HTN, Mccoy's/GERD, thyroid cancer s/p thyroidectomy and postop hypothyroidism, chronic abdominal pain with opioid dependence, HTN, asthma, depression, panic disorder Presented with abdominal pain, obstipated, rhabdo, TERRANCE. Had ileus and colonic pseudo-obstruction so was transferred from OSH to [facility]. Treated with neostigmine in their ICU. Had BM finally, colonoscopy with findings concerning for immanent perforation of ascending colon. Underwent ex lap, R hemicolectomy, mucus fistula, ileostomy and flex sig on 11/16. Stool sample came back +C. diff. ID consulted, treated with po/rectal vancomycin and IV metronidazole. Initially improved but developed worsening distention 11/25 and fever on 11/29. Found to have staph epi bacteremia related to RUE septic thrombophlebitis. ROME negative for vegetations. Treated with IV vancomycin/daptomycin through 01/02/25. He also was found to have had severe hypothyroidism (TSH 86.6 in late Oct 2024), which could have provoked the ileus, and levothyroxine dose was increased. # DM type 1 - A1c 8.6% - - health educator met with patient - does have his insulin pump supplies at the bedside - doing well on SC basal-bolus; resume pump today - appreciate DM educator assistance # HTN - - cont to hold antihypertensives - BPs controlled w/o them (coreg, lisinopril) # hyperlipidemia - - can resume statin - lipitor 10mg HS # GERD/Mccoy's - - cont PPI # Anxiety, mood disorder - - usually takes clonazepam prn - currently on IV lorazepam PRN -can resume clonazepam and stop IV ativan - resume fluoxetine # Recent staph epi bacteremia related to RUE septic thrombophlebitis - - ROME was negative - Completed a month of daptomycin on 01/02/25 per [facility] # postprocedural hypothyroidism - Hx thyroidectomy for thyroid Ca - - TSH 28; was 86.6 in late October ---> improving - patient reports he is NOT on levothyroxine; he is on Tirosent 2 tabs daily - follows with endocrinology in [place] -- Dr Nevin Alarcon - [phone] - will try to verify dosing with their office # pancreatic insufficiency - - hx necrotizing pancreatitis which required necrosectomy - resume creon 2 caps TID w/ meals # chronic pain, opioid dependence - - per PDMP uses fentanyl patch 75 mcg and also oxycodone 20 mg qid prn - continue fentanyl patch - oxyn prn # DVT ppx - - enoxaparin 40mg daily progressing nicely home tomorrow ? needs PT eval Admission and Anticipated Discharge Date Admission Date: January 14, 2025 Subjective no events passing plenty of stool via his ileostomy no change in chronic left-sided abd pain no nausea or emesis we had lengthy discussion about his thyroid replacement although pharmacy records show that levothyroxine WAS filled in early December he is NOT on this he is taking Tirosent 2 tabs daily (50mcg x 2?) Review of Systems Review of Systems: CV - no chest pain pulm - no dyspnea GI - no nausea/vomiting Physical Exam Physical Exam: gen - NAD, lying comfortably in bed, awake/alert head - large scar right scalp face - facial droop on right neck - no JVD mouth - MMM heart - RRR, s1 s2, no murmur lungs - CTA b/l abd - soft, ND, nontender today, ileostomy with copious liquid brown stool, BS+ ext - no edema, pulses 2+ b/l feet Results & Data Results & Data Vital Signs (Past 12 Hours) Vital Signs Temp Pulse Resp BP Pulse Ox O2 Del Method 01/19/25 15:11 37.0 C 80 18 128/90 94 Room Air Laboratory Results Laboratory Results - last 24 hr 01/18/25 01/19/25 01/19/25 21:43 06:12 07:23 Sodium 135 L Potassium 3.6 Chloride 103 Carbon Dioxide 23 Anion Gap 9 BUN 10 Creatinine 0.85 Est Cr Clr Drug Dosing 121.0 eGFR 100.72 BUN/Creatinine Ratio 11.8 Glucose 188 H POC Glucose 84 171 H Calcium 8.3 L TSH 28.782 H 01/19/25 01/19/25 11:24 16:22 Sodium Potassium Chloride Carbon Dioxide Anion Gap BUN Creatinine Est Cr Clr Drug Dosing eGFR BUN/Creatinine Ratio Glucose POC Glucose 244 H 161 H Calcium TSH PG Care Time/CCT Total # of Minutes Spent Total Time Spent with Patient: Total time spent is greater than 50% in coordination of care (as documented) at patient's floor/unit and/or counseling patient: Coding Level of Care Code 84531 SUB INP/OBS CARE 2/35MIN Diagnoses Partial small bowel obstruction K56.600 C. difficile colitis A04.72 Diabetes type 1 E10.9 HTN (hypertension) I10 Opioid dependence F11.[address] Z93.2
[2025-01-19] MEDS: ATORVASTATIN 10 MG TAB PO SCH (21:35)
[2025-01-20] MEDS ORDERED: clonazePAM 1 MG TAB PO PRN (09:54)
--- NOTE | 2025-01-20 11:33 | Pharmacy Report ---
Pharmacy Glycemic Sign Off Nt - Date of Service January 20, 2025 - Assessment & Plan ASSESSMENT: * Pharmacy was consulted by Dr. Garcia on 01/14/25 for glycemic control and to write orders per [facility] inpatient glycemic control protocol. * Major changes made by pharmacy to antidiabetic regimen include: * Assisted in adjusting SC basal + bolus insulin regimen while home insulin pump was held * Patient now tolerating oral intake well, thus it was decided on 01/19 that he could resume insulin pump. CDE was present to assist patient in reconnecting the pump. No concerns at this time. * Do not anticipate further changes in patient status that would quickly deteriorate glycemic control (i.e. patient to be NPO for upcoming procedure, steroids tapering, starting tube feedings, etc). PLAN FOR INPATIENT GLYCEMIC CONTROL: * Continue home insulin pump per home settings * Pharmacy is signing off of glycemic consult and will no longer be making adjustments to inpatient regimen. Please feel free to re-consult if needed. Thank you.
[2025-01-20] MEDS: PANCREAZE (LIPASE 10,500U) CAP PO SCH (11:39)
[2025-01-20 14:15] VITALS: TEMP 97.5; O2SAT 95
[2025-01-20 14:20] VITALS: BP 112/78; PULSE 78
--- NOTE | 2025-01-20 14:26 | Discharge Summary ---
Discharge Summary Date of Service January 20, 2025 Principal Dx & Hospital Course #1 = Principal Diagnosis (1) Partial small bowel obstruction: (2) C. difficile colitis: (3) Diabetes type 1: (4) HTN (hypertension): (5) Opioid dependence: (6) Ileostomy in place: Plan 59yo with right hemicolectomy and ileostomy creation on 11/16/24 at [facility] [address]. During his near month-long stay had C. diff infection and bacteremia. At time of this admission found to have partial SBO vs ileus on CT abdomen/pelvis. # Partial SBO vs ileus - present on admission - resolved - - required NG tube placement for such - with resolution of the pSBO the NG tube was removed - stooling via ileostomy - tolerated clear liquids; advance to full liquids, then regular - appreciate gen surg assistance # Right hemicolectomy with ileostomy creation - - records from [facility] - synopsis - PMH includes necrotizing pancreatitis with necrosectomy in 2020, resultant DM type 1 and pancreatic insufficiency, HTN, Mccoy's/GERD, thyroid cancer s/p thyroidectomy and postop hypothyroidism, chronic abdominal pain with opioid dependence, HTN, asthma, depression, panic disorder Presented with abdominal pain, obstipated, rhabdo, TERRANCE. Had ileus and colonic pseudo-obstruction so was transferred from OSH to [facility]. Treated with neostigmine in their ICU. Had BM finally, colonoscopy with findings concerning for immanent perforation of ascending colon. Underwent ex lap, R hemicolectomy, mucus fistula, ileostomy and flex sig on 11/16. Stool sample came back +C. diff. ID consulted, treated with po/rectal vancomycin and IV metronidazole. Initially improved but developed worsening distention 11/25 and fever on 11/29. Found to have staph epi bacteremia related to RUE septic thrombophlebitis. ROME negative for vegetations. Treated with IV vancomycin/daptomycin through 01/02/25. He also was found to have had severe hypothyroidism (TSH 86.6 in late Oct 2024), which could have provoked the ileus, and levothyroxine dose was increased. # DM type 1 - A1c 8.6% - - public health educator met with patient - does have his insulin pump supplies at the bedside - doing well on SC basal-bolus; resume pump today - appreciate DM educator assistance # HTN - - cont to hold antihypertensives - BPs controlled w/o them (coreg, lisinopril) # hyperlipidemia - - can resume statin - lipitor 10mg HS # GERD/Mccoy's - - cont PPI # Anxiety, mood disorder - - usually takes clonazepam prn - currently on IV lorazepam PRN -can resume clonazepam and stop IV ativan - resume fluoxetine # Recent staph epi bacteremia related to RUE septic thrombophlebitis - - ROME was negative - Completed a month of daptomycin on 01/02/25 per [facility] ID # postprocedural hypothyroidism - Hx thyroidectomy for thyroid Ca - - TSH 28; was 86.6 in late October ---> improving - patient reports he is NOT on levothyroxine; he is on Tirosent 2 tabs daily - follows with endocrinology in [place] -- Dr Nevin Alarcon - [phone] - will try to verify dosing with their office # pancreatic insufficiency - - hx necrotizing pancreatitis which required necrosectomy - resume creon 2 caps TID w/ meals # chronic pain, opioid dependence - - per PDMP uses fentanyl patch 75 mcg and also oxycodone 20 mg qid prn - continue fentanyl patch - oxyn prn # DVT ppx - - enoxaparin 40mg daily progressing nicely home tomorrow ? needs PT eval Admission HPI Per Admitting Provider 59 y/o with DM type 1 and right hemicolectomy with colostomy 11/16 at [facility] came in with nausea/vomiting, abdominal pain and distention. He says the hemicolectomy was done for a dilated and abscessed right colon. He had a bacteremia and completed IV antibiotics at home recently. He also was treated for C. diff and completed oral vancomycin recently. He was in his usual state of health until yesterday, developed some chills/sweats, recurrent nausea/vomiting, severe abdominal pain. Yesterday he had a good amount of oatmeal consistency stool from his ostomy. Today he has had a lot of liquid stool and gas. He would put it in the category of diarrhea. No blood in stool. Pain improved to moderate after IV hydromorphone but it did wear off in about 2h. Med list not up to date yet, I reviewed in pharm database and PDMP Remarkable for amlodipine, coreg, lisinopril, statin, levothyroxine, PPI, clonazepam, fentanyl patch 75 mcg, oxycodone 20 mg po qid prn, insulin pump PMH: DM type 1 Hypothyroidism HTN HLD PSH: R hemicolectomy, R colostomy 11/16 Thyroid resection Discharge Exam gen - NAD, lying comfortably in bed, awake/alert head - large scar right scalp face - facial droop on right neck - no JVD mouth - MMM heart - RRR, s1 s2, no murmur lungs - CTA b/l abd - soft, ND, nontender today, ileostomy with copious liquid brown stool, BS+ ext - no edema, pulses 2+ b/l feet Discharge Plan Discharge Items Patient Disposition: Home - Self-Care Reason For Visit: PARTIAL Small Bowel Obstruction Discharge Diagnosis: 1. partial small bowel obstruction (blockage) - resolved 2. ileostomy in place 3. history of hemicolectomy 4. diabetes on insulin pump 5. hypothyroidism Condition on Discharge: Good Activity: As commented below Activity Comment: gradually increase activities over the next 3-5 days Driving/Machine Use: NO DRIVING due to narcotic usage (fentanyl, oxycodone) Non-emergency contact: Primary Care Provider Call non-emergency contact if: you have any medication questions, your symptoms worsen, your pain is not controlled, your pain is worsening, your pain is unusual for you, your pain is concerning for you and you have a fever Follow-up/Referrals: Ike Hare PA-C [Primary Care Provider] - 01/25/25 1:20 pm Diet: Carb Count or DM1 and Low Fiber Addtl Attending Provider Instructions: Mr Villagomez, You were hospitalized due to a partial small bowel obstruction (blockage). This was managed with an NG tube, IV fluids, bowel rest/dietary restriction, and supportive care. You were seen by [facility] who assisted greatly in the care of your bowel obstruction. With time your bowels opened up and you started to pass copious amounts of stool via your ileostomy. This meant that the bowel blockage was resolving. The NG tube was removed and you were started on clear liquids. You tolerated this well. Diet was ultimately advanced to regular diet and you have done well with this. On 01/19 your insulin pump was resumed. Recommendations - 1. Likely because of recent weight loss your blood pressures were well- controlled without most of your blood pressure medicines. All of your blood pressure medicines were on hold. Please stop the following - -carvedilol -spironolactone -amlodipine I would plan to check your blood pressure twice daily until you see your family doctor on 01/25/25. Write these numbers down in a notebook and show these values to him. If you don't have a blood pressure cuff please purchase one from [employer], [employer], etc. I would recommend a cuff that fits on the upper portion of either arm. If your readings at home start to run high your family doctor can resume 1 or more of your blood pressure medicines. 2. Please CHANGE your furosemide water pill to NEEDED (rather than every other day scheduled). I would use the furosemide as needed if you see swelling in your legs & feet and/or you feel you are gaining fluid weight. If you check your weight every day and your weights are stable, you don't see fluid in your feet, etc. then you won't have to take the water pill. 3. Please HOLD your dicyclomine until you see your family doctor. 4. Your TSH thyroid level was 28.7 while hospitalized. It was 86.6 early in the fall. Thus, your thyroid levels are improving nicely. We have left a message for your line construction supervisor to verify your thyroid medicine dosing, confirm your next appointment, etc. 5. Please follow a low fiber diet for the next 10 days. See handout on "low fiber" diet. Follow-up - -see your family doctor on 01/25/25 as scheduled -see your line construction supervisor as recommended Return to [facility] or any hospital if - -you have fevers over 100 degrees -you have concerns that you are dumping large quantities of stool via your ostomy -you have recurrent, severe (worse than your typical pains) abdominal pain -you have vomiting -you are concerned about dehydration -any other concerns It was our pleasure to care for you! -Boo Castaneda, [facility] medicine Pending Studies at Discharge: No Stand-Alone Forms: My [facility], Smoking Cessation Medications and DC Order Prescriptions: New Insulin Rapid Acting Pump 1 ea Not Applicable ACHS Qty: 1 0RF Rx Instructions: Novolog via [employer] pump. Settings: Basal rate: 1.9 units/hour x 24 hours Total: 45.6 units Bolus amounts: carbohydrate ratio -- 1 unit for 7 grams of carbs consumed correction factor for high blood sugar -- 38 Target blood sugar goal: 100-120 Continued calcitriol 0.5 mcg Capsule 0.5 mcg PO DAILY fentanyl 75 mcg/hr Patch 72 Hour 1 patch TRANSDERMAL Q72H Creon 12,000-38,000 -60,000 unit Capsule,Delayed Release(Dr/Ec) 2 cap PO TID Rx Instructions: 2 with each meal; 1 with snacks. levothyroxine [Tirosint] 50 mcg Capsule 50 mcg PO DAILY Movantik 25 mg Tablet 25 mg PO QAM Rx Instructions: must be taken on empty stomach; no food 1 hr after or 2-3 hrs before dose levothyroxine [Tirosint] 200 mcg Capsule 200 mcg PO DAILY rosuvastatin 40 mg Tablet 40 mg PO DAILY oxycodone 20 mg Tablet 20 mg PO Q6H PRN (Reason: Pain) Changed furosemide 20 mg Tablet 20 mg PO QAM PRN (Reason: fluid weight gain or swelling of legs) Qty: 0 0RF Held dicyclomine 10 mg Capsule 10 mg PO QID Hold Instructions: HOLD until you see your family doctor Discontinued carvedilol 25 mg Tablet 25 mg PO BID Rx Instructions: must administer with a meal/food amlodipine 5 mg Tablet 5 mg PO DAILY spironolactone 25 mg Tablet 25 mg PO DAILY Discharge Orders: Discharge Order (Routine); Ordered 01/20/25 Ordered By: Boo Mendoza/Other Patient Handouts: Small Bowel Obstruction, Low-Fiber Diet, Managing Type 1 Diabetes Admission Data Admit Date/Time: 01/14/25 18:52 Attending Provider: Boo Castaneda Admit Provider: Macie Garcia Primary Care Provider: Ike Hare Other Providers: Macie Garcia; Jaylan Cisneros Hospital Stay Data Consultations 01/14/25 18:19 ED Decision to Admit Stat 01/15/25 12:17 Consult General Surgery Routine Diagnostic Imagining Performed 01/14/25 15:23 CT abd pelvis IV con only Stat Pending Results Patient Have Any Pending Studies at Discharge: No Discharge Instructions Given to Patient (Per Discharging Provider) Manpreet Neff were hospitalized due to a partial small bowel obstruction (blockage). This was managed with an NG tube, IV fluids, bowel rest/dietary restriction, and supportive care. You were seen by [facility] who assisted greatly in the care of your bowel obstruction. With time your bowels opened up and you started to pass copious amounts of stool via your ileostomy. This meant that the bowel blockage was resolving. The NG tube was removed and you were started on clear liquids. You tolerated this well. Diet was ultimately advanced to regular diet and you have done well with this. On 01/19 your insulin pump was resumed. Recommendations - 1. Likely because of recent weight loss your blood pressures were well- controlled without most of your blood pressure medicines. All of your blood pressure medicines were on hold. Please stop the following - -carvedilol -spironolactone -amlodipine I would plan to check your blood pressure twice daily until you see your family doctor on 01/25/25. Write these numbers down in a notebook and show these values to him. If you don't have a blood pressure cuff please purchase one from [employer], [employer], etc. I would recommend a cuff that fits on the upper portion of either arm. If your readings at home start to run high your family doctor can resume 1 or more of your blood pressure medicines. 2. Please CHANGE your furosemide water pill to NEEDED (rather than every other day scheduled). I would use the furosemide as needed if you see swelling in your legs & feet and/or you feel you are gaining fluid weight. If you check your weight every day and your weights are stable, you don't see fluid in your feet, etc. then you won't have to take the water pill. 3. Please HOLD your dicyclomine until you see your family doctor. 4. Your TSH thyroid level was 28.7 while hospitalized. It was 86.6 early in the fall. Thus, your thyroid levels are improving nicely. We have left a message for your line construction supervisor to verify your thyroid medicine dosing, confirm your next appointment, etc. 5. Please follow a low fiber diet for the next 10 days. See handout on "low fiber" diet. Follow-up - -see your family doctor on 01/25/25 as scheduled -see your line construction supervisor as recommended Return to [facility] or any hospital if - -you have fevers over 100 degrees -you have concerns that you are dumping large quantities of stool via your ostomy -you have recurrent, severe (worse than your typical pains) abdominal pain -you have vomiting -you are concerned about dehydration -any other concerns It was our pleasure to care for you! -Boo Castaneda, hospital medicine Coding Diagnoses Partial small bowel obstruction K56.600 C. difficile colitis A04.72 Diabetes type 1 E10.9 HTN (hypertension) I10 Opioid dependence F11.[address] Z93.2
== END 2025-01-20 15:26 | disposition home health service (06) | DRG 389 ==
LOC: ED 14:13 → SUATTDRO 18:52 → 3W 18:52